=== PATIENT | female | born 1960 | race Caucasian/White ===

== ENCOUNTER 2018-07-11 11:44 | Observation (INO) ==
--- NOTE | 2018-07-11 12:16 | ED ---
HPI General Chief Complaint: Chest Pain Stated Complaint: chest pain/dizziness Time Seen by Provider: 07/11/18 11:58 Source: patient and family Mode of arrival: ambulatory Limitations: no limitations History of Present Illness HPI narrative: 57-year-old female with PMH of COPD, HTN presents to the ED for evaluation of 06/09 substernal chest pain, described as a heaviness, radiating to bilateral sides of the neck. Onset while at rest approximately 45 minutes before arrival. No alleviating or exacerbating factors reported. Patient reports associated dizziness, coronal headache, blurred vision, palpitations, shortness of breath, nausea. She denies any cardiac history. She takes a daily full-strength aspirin. No treatment attempted before arrival. She is a current smoker. MD complaint: chest pain Complete Quality Measures for STEMI Alert Patients STEMI Alert: No Onset (ago): minute(s) (45 minutes before arrival) Duration: constant Onset: during rest Pain location: substernal Severity: moderate Severity scale (1-10): 7 Quality: heaviness Pain radiation: neck Relieving factors: nothing Exacerbating factors: nothing Associated symptoms: nausea, dyspnea, palpitations and other (headache and dizziness) Treatments prior to arrival chest pain: none Related Data Allergies Allergy/AdvReac Type Severity Reaction Status Date / Time No Known Allergies Allergy Unverified 07/11/18 11:59 Review of Systems ROS: all other systems reviewed are negative [facility] Medical History Medical History Asthma (Acute) COPD (chronic obstructive pulmonary disease) (Acute) FHx: cholecystectomy (Acute) High cholesterol (Acute) Surgical History Surgical History H/O tubal ligation (Acute) Previous back surgery (Acute) Social History Social History Substance History: No History of Abuse Second Hand Smoke Exposure: Yes Smoking Status: Current every day smoker Tobacco Type: Cigarettes How Often Do You Have a Drink Containing Alcohol: Never Recent Out of Country Travel within the Last 8 Weeks: No Exam Narrative Exam Narrative: GENERAL: Petite, anxious appearing white female no acute distress. SKIN: Focused skin assessment warm/dry. HEAD: Atraumatic. Normocephalic. EYES: Pupils equal and round. No scleral icterus. No injection or drainage. ENT: No nasal bleeding or discharge. Mucous membranes pink and moist. NECK: Trachea midline. No JVD. CARDIOVASCULAR: Regular rate and rhythm. No murmur appreciated. RESPIRATORY: No accessory muscle use. End expiratory wheezing bilaterally. Breath sounds equal bilaterally. GASTROINTESTINAL: Abdomen soft, non-tender, nondistended. Hepatic and splenic margins not palpable. MUSCULOSKELETAL: No obvious deformities. No clubbing. No cyanosis. No edema. NEUROLOGICAL: Awake and alert. No obvious cranial nerve deficits. Motor grossly within normal limits. Normal speech. PSYCHIATRIC: Anxious. Course Initial Documented Vital Signs Temperature 98.1 F 07/11/18 11:50 Pulse Rate 84 07/11/18 11:50 Respiratory Rate 13 07/11/18 11:50 Blood Pressure 178/91 H 07/11/18 11:50 Pulse Oximetry 96 07/11/18 11:50 Last Documented Vital Signs Temperature 98.6 F 07/11/18 12:05 Pulse Rate 81 07/11/18 15:00 Respiratory Rate 20 07/11/18 15:00 Blood Pressure 137/77 07/11/18 15:00 Pulse Oximetry 97 07/11/18 15:00 Medical Decision Making MDM Narrative Medical decision making narrative: 57-year-old female with PMH of HTN, COPD presents the ED for evaluation of 45 minute history of chest heaviness radiating to the neck with associated headache and dizziness. BP 178/91 on presentation. Physical exam reveals an anxious appearing white female with tight breath sounds, otherwise unremarkable. Patient takes a daily aspirin. IV was established. Patient was administered p.o. Tylenol, sublingual nitroglycerin, IV dexamethasone and duo nebs 2. She complained of headache and was administered Benadryl, Compazine and morphine. She reports improvement of all her symptoms on recheck. She reports negative stress test 1 year ago. EKG: Rate 87, sinus rhythm. Normal intervals. Normal axis. No acute ST changes. Reviewed by Dr. Martinez. CT brain reveals evidence of old infarct but no acute findings. Cardiac enzymes negative 1, second troponin ordered. Plan to admit to the medicine service for COPD exacerbation, rule out ACS. Patient's agreeable to the plan. I spoke with the residents who agree to accept the patient under Dr. Cortez. Please see medicine notes for disposition. Differential Diagnosis Differential Diagnosis: COPD exacerbation versus anxiety versus chest pain versus ACS versus hypertensive urgency versus less likely dissecting aneurysm versus other Lab Data Result diagrams: 07/11/18 12:10 07/11/18 12:10 Lab Results 07/11/18 07/11/18 07/11/18 Range/Units 12:10 12:10 12:10 WBC 12.5 H (4.0-11.0) th/mm3 RBC 4.89 (4.00-5.30) mil/mm3 Hgb 14.2 (11.6-15.3) gm/dL Hct 43.2 (35.0-46.0) % MCV 88.4 (80.0-100.0) fL MCH 29.0 (27.0-34.0) pg MCHC 32.8 (32.0-36.0) % RDW 13.9 (11.6-17.2) % Plt Count 342 (150-450) th/mm3 MPV 8.8 (7.0-11.0) fL Neut % (Auto) 61.5 (16.0-70.0) % Lymph % (Auto) 28.8 (9.0-44.0) % [place] % (Auto) 4.7 (0.0-8.0) % Eos % (Auto) 4.2 H (0.0-4.0) % Baso % (Auto) 0.8 (0.0-2.0) % Neut # (Auto) 7.7 (1.8-7.7) th/mm3 Lymph # (Auto) 3.6 (1.0-4.8) th/mm3 [place] # (Auto) 0.6 (0.0-0.9) th/mm3 Eos # (Auto) 0.5 H (0.0-0.4) th/mm3 Baso # (Auto) 0.1 (0.0-0.2) th/mm3 WBC Differential . Differential Comment Auto diff final PT 9.9 (9.8-11.6) sec INR 1.0 Ratio APTT 30.8 H (24.3-30.1) sec Sodium 140 (136-145) meq/L Potassium 4.2 (3.5-5.1) meq/L Chloride 108 H (98-107) meq/L Carbon Dioxide 22.5 (21.0-32.0) meq/L Anion Gap 10 (5-15) meq/L BUN 14 (7-18) mg/dL Creatinine 1.04 H (0.50-1.00) mg/dL Estimated GFR 54 L (>89) mL/min Random Glucose 94 (74-106) mg/dL Calcium 9.1 (8.5-10.1) mg/dL Total Bilirubin 0.2 (0.2-1.0) mg/dL AST 26 (15-37) U/L ALT 34 (10-53) U/L Alkaline Phosphatase 130 H (45-117) U/L Troponin I Less than 0.02 L (0.02-0.05) ng/mL B-Natriuretic Peptide (0-100) pg/mL Total Protein 7.9 (6.4-8.2) g/dL Albumin 3.9 (3.4-5.0) g/dL Lipase 139 (73-393) U/L Urine Color (Yellw/Straw) Urine Clarity (Clear) Urine pH (5.0-8.5) Ur Specific [place] (1.002-1.035) Urine Protein (Neg-Trace) mg/dL Urine Glucose (UA) (Negative) mg/dL Urine Ketones (Negative) mg/dL Urine Occult Blood (Negative) Urine Nitrate (Negative) Urine Bilirubin (Negative) Urine Urobilinogen (Less than 2) mg/dL Ur Leukocyte Esterase (Negative) Urine RBC (0-3) /hpf Urine WBC (0-5) /hpf Ur Squamous Epith Cells (0-5) /hpf Urine Bacteria (None) /hpf Hyaline Casts (0-3) /lpf Urine Mucus (Occasional) /lpf Micro UA Comment Urine Culture Comments Serum Alcohol Less than 3 (0-5) mg/dL 07/11/18 07/11/18 Range/Units 12:10 15:45 WBC (4.0-11.0) th/mm3 RBC (4.00-5.30) mil/mm3 Hgb (11.6-15.3) gm/dL Hct (35.0-46.0) % MCV (80.0-100.0) fL MCH (27.0-34.0) pg MCHC (32.0-36.0) % RDW (11.6-17.2) % Plt Count (150-450) th/mm3 MPV (7.0-11.0) fL Neut % (Auto) (16.0-70.0) % Lymph % (Auto) (9.0-44.0) % [place] % (Auto) (0.0-8.0) % Eos % (Auto) (0.0-4.0) % Baso % (Auto) (0.0-2.0) % Neut # (Auto) (1.8-7.7) th/mm3 Lymph # (Auto) (1.0-4.8) th/mm3 [place] # (Auto) (0.0-0.9) th/mm3 Eos # (Auto) (0.0-0.4) th/mm3 Baso # (Auto) (0.0-0.2) th/mm3 WBC Differential Differential Comment PT (9.8-11.6) sec INR Ratio APTT (24.3-30.1) sec Sodium (136-145) meq/L Potassium (3.5-5.1) meq/L Chloride (98-107) meq/L Carbon Dioxide (21.0-32.0) meq/L Anion Gap (5-15) meq/L BUN (7-18) mg/dL Creatinine (0.50-1.00) mg/dL Estimated GFR (>89) mL/min Random Glucose (74-106) mg/dL Calcium (8.5-10.1) mg/dL Total Bilirubin (0.2-1.0) mg/dL AST (15-37) U/L ALT (10-53) U/L Alkaline Phosphatase (45-117) U/L Troponin I (0.02-0.05) ng/mL B-Natriuretic Peptide 10 (0-100) pg/mL Total Protein (6.4-8.2) g/dL Albumin (3.4-5.0) g/dL Lipase (73-393) U/L Urine Color Yellow (Yellw/Straw) Urine Clarity Hazy H (Clear) Urine pH 5.0 (5.0-8.5) Ur Specific [place] 1.011 (1.002-1.035) Urine Protein Negative (Neg-Trace) mg/dL Urine Glucose (UA) Negative (Negative) mg/dL Urine Ketones Negative (Negative) mg/dL Urine Occult Blood Negative (Negative) Urine Nitrate Negative (Negative) Urine Bilirubin Negative (Negative) Urine Urobilinogen Less than 2 (Less than 2) mg/dL Ur Leukocyte Esterase Moderate H (Negative) Urine RBC 1 (0-3) /hpf Urine WBC 14 H (0-5) /hpf Ur Squamous Epith Cells 9 (0-5) /hpf Urine Bacteria Rare H (None) /hpf Hyaline Casts 1 (0-3) /lpf Urine Mucus Few H (Occasional) /lpf Micro UA Comment Culture indicated Urine Culture Comments Culture indicated Serum Alcohol (0-5) mg/dL Imaging Data Radiologist's impression: Chest X-Ray 07/11/18 11:59 CONCLUSION: No acute cardiopulmonary disease. Head CT 07/11/18 12:07 CONCLUSION: 1. 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 2. Small old infarct in the posterior right cerebellar hemisphere. 3. No focal or acute intracranial hemorrhage. . Discharge Plan Discharge Disposition Patient Disposition: 30 Still Patient Physicians Team ED Provider: Kamar Martinez ED Midlevel Provider: Sanjuana Lawrence Primary Care Provider: Primary Care Kelsi Bryant Discharge Instructions Patient Printed Instructions: Chest Pain (ED) Status ED Status: With Doctor
--- NOTE | 2018-07-11 12:29 | XR ---
EXAM DATE: 07/11/2018 12:26 PM EDT AGE/SEX: 57 years / Female INDICATIONS: Shortness of breath. CLINICAL DATA: This is the patient's initial encounter. Patient reports that signs and symptoms have been present for 3 days and indicates a pain score of 4/10. MEDICAL/SURGICAL HISTORY: Hypertension. Chronic obstructive pulmonary disease. None. COMPARISON: No prior exams available for comparison. FINDINGS: A single AP view of the chest demonstrates the lungs to be symmetrically aerated without evidence of mass, infiltrate or effusion. The cardiomediastinal contours are unremarkable. Osseous structures a re intact. CONCLUSION: No acute cardiopulmonary disease. Electronically signed by: Geovanni Sexton MD 07/11/2018 12:27 PM EDT
[2018-07-11 13:37] LABS: Baso # (Auto) 0.1 th/mm3 (0.0-0.2); Baso % (Auto) 0.8 % (0.0-2.0); Eos # (Auto) 0.5 th/mm3 (0.0-0.4); Eos % (Auto) 4.2 % (0.0-4.0); Hematocrit 43.2 % (35.0-46.0); Hemoglobin 14.2 gm/dL (11.6-15.3); Lymph # (Auto) 3.6 th/mm3 (1.0-4.8); Lymph % (Auto) 28.8 % (9.0-44.0); Mean Corpuscular HGB Conc 32.8 % (32.0-36.0); Mean Corpuscular Volume 88.4 fL (80.0-100.0); Mean Platelet Volume 8.8 fL (7.0-11.0); Mono # (Auto) 0.6 th/mm3 (0.0-0.9); Mono % (Auto) 4.7 % (0.0-8.0); Neut # (Auto) 7.7 th/mm3 (1.8-7.7); Neut % (Auto) 61.5 % (16.0-70.0); Platelet Count 342 th/mm3 (150-450); Red Blood Count 4.89 mil/mm3 (4.00-5.30); Red Cell Distribution Width 13.9 % (11.6-17.2); White Blood Count 12.5 th/mm3 (4.0-11.0)
[2018-07-11] MEDS ORDERED: Acetaminophen 325 MG Tablet PO ONE (13:47)
[2018-07-11 13:49] LABS: Activated Partial Thrombo Time 30.8 sec (24.3-30.1); Prothrombin Time 9.9 sec (9.8-11.6)
[2018-07-11 13:50] LABS: Albumin 3.9 g/dL (3.4-5.0); Anion Gap 10 meq/L (5-15); Aspartate Aminotransferase 26 U/L (15-37); Blood Urea Nitrogen 14 mg/dL (7-18); Calcium 9.1 mg/dL (8.5-10.1); Carbon Dioxide 22.5 meq/L (21.0-32.0); Chloride 108 meq/L (98-107); Glomerular Filtration Rate 54 mL/min (>89); Glucose,Random 94 mg/dL (74-106); Lipase 139 U/L (73-393); Potassium 4.2 meq/L (3.5-5.1); Sodium 140 meq/L (136-145)
[2018-07-11 13:51] LABS: Alanine Aminotransferase 34 U/L (10-53)
[2018-07-11 13:55] LABS: Alkaline Phosphatase 130 U/L (45-117); Total Protein 7.9 g/dL (6.4-8.2)
[2018-07-11] MEDS ORDERED: Morphine Inj 4 MG/ML Vial IV.PUSH ONE (14:24)
--- NOTE | 2018-07-11 15:13 | CT ---
EXAM DATE: 07/11/2018 2:59 PM EDT AGE/SEX: 57 years / Female INDICATIONS: Dizziness today. CLINICAL DATA: This is the patient's initial encounter. Patient reports that signs and symptoms have been present for 1 day and indicates a pain score of 0/10. MEDICAL/SURGICAL HISTORY: Stroke. None. RADIATION DOSE: 56.35 CTDI (mGy) COMPARISON: No prior exams available for comparison. TECHNIQUE: CT of the head without contrast. Using automated exposure control and adjustment of the mA and/or kV according to patient size, radiation dose was kept as low as reasonably achievable to ob tain optimal diagnostic quality images. DICOM format image data is available electronically for revi ew and comparison. FINDINGS: Cerebrum: The ventricles are normal for age. No evidence of midline shift, mass lesion, hemorrhage or acute infarction. There is evidence of old bilateral occipital infarcts, right greater than left. No extraaxial fluid collections are seen. Posterior Fossa: There is a small old infarct in the posterior right cerebellar hemisphere.. The 4t h ventricle is midline. The cerebellopontine angle is unremarkable. Extracranial: The visualized portion of the orbits is intact. Skull: The calvaria is intact. No evidence of skull fracture. CONCLUSION: 1. 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 2. Small old infarct in the posterior right cerebellar hemisphere. 3. No focal or acute intracranial hemorrhage. . Electronically signed by: Markus Ignacio MD 07/11/2018 3:12 PM EDT
[2018-07-11 16:10] LABS: Bacteria,Urine Rare /hpf; Bilirubin,Urine Negative (Negative); Clarity,Urine Hazy (Clear); Color,Urine Yellow (Yellw/Straw); Glucose,Urine (UA) Negative (Negative); Hyaline Casts,Urine 1 /lpf (0-3); Leukocyte Esterase,Urine Moderate (Negative); Mucus,Urine Few /lpf (Occasional); Nitrite,Urine Negative (Negative); Specific Gravity,Urine 1.011 (1.002-1.035); Squamous Epithelial Cell,Urine 9 /hpf (0-5)
[2018-07-11 16:11] LABS: Amphetamine Screen,Urine Neg (Neg); Barbiturate Screen,Urine Neg (Neg); Cannabinoid Screen,Urine Neg (Neg); Cocaine Screen,Urine Neg (Neg)
[2018-07-11 16:32] LABS: Opiate Screen,Urine Neg (Neg)
--- NOTE | 2018-07-11 17:25 | P.HPFP ---
History of Present Illness Primary Care Physician: No Primary Care Physician <Annia Cortez - 07/12/18 11:43> No Primary Care Physician Recently moved from [place], no PCP here yet <Maite Bertrand - 07/11/18 17:25> History of Present Illness: 57-year-old female, history of severe COPD, headaches, multiple strokes, kidney disease, presents with COPD exacerbation, headache, and epigastric pain. All of her symptoms started at 11:45AM this morning in the store. She got dizzy and nauseas, and drove her to the ED. During time of exam, pt is s/p morphine dosing and is very letheragic and having difficulty answering questions. The states she stopped the cart in the middle of the store and said she was dizzy and nauseas and wanted to go sit in the car. In the car she was slumped against the door and looked really sick. She was complaining of headache over the day; it started in the morning when she woke up and progressively got worse and worse over the day. She did not appear to have any difficulty breathing. She was holding her chest and saying she had "sharp pains in the middle" of her chest. She seemed to be somewhat altered/confused, however this does happen to her occasionally since her strokes. After arriving to the ED, her CP was relieved with nitro, nausea was relieved, but her headache remained. <Maite Bertrand - 07/11/18 21:33> - Diagnosis (1) COPD (chronic obstructive pulmonary disease) (2) Headache (3) Diarrhea (4) Epigastric pain (5) Anxiety (6) CVA, old, cognitive deficits (7) CKD (chronic kidney disease) (8) UTI (urinary tract infection) (9) Nutrition, metabolism, and development symptoms <Annia Cortez - 07/12/18 11:43> (1) COPD (chronic obstructive pulmonary disease) (2) Headache (3) Diarrhea (4) Epigastric pain (5) Anxiety (6) CVA, old, cognitive deficits (7) CKD (chronic kidney disease) (8) UTI (urinary tract infection) (9) Nutrition, metabolism, and development symptoms <Maite Bertrand - 07/11/18 21:30> Review of Systems Constitutional: Denies body ache(s), Denies chills, Denies fever(s), Denies weight loss <Maite Bertrand 07/11/18 17:25> Eyes: Reports blurry vision (yes today) <Maite Bertrand 07/11/18 17:25> Cardiovascular: Reports shortness of breath (some SOB a few days ago), Denies fainting, Denies leg swelling <Maite Bertrand 07/11/18 17:25> Respiratory: Reports cough <Maite Bertrand 07/11/18 17:25> Gastrointestinal: Reports change in bowel habits (diarrhea recently, x 1 week), Denies abdominal pain, Denies black, tarry stools <Maite Bertrand 07/11/18 17:25> Musculoskeletal: Reports abnormal walking <Maite Bertrand 07/11/18 17:25> PMFSH - History History Provided By: Patient, Family Member <Maite Bertrand 07/11/18 17:25> - Medical History Medical History: Medical History (Last Updated 07/11/18 @ 17:28 by Maite Bertrand MD, R2) Asthma COPD (chronic obstructive pulmonary disease) CVA (cerebral vascular accident) FHx: cholecystectomy High cholesterol <Annia Cortez 07/12/18 11:43> Medical History (Last Updated 07/11/18 @ 17:28 by Maite Bertrand MD, R2) Asthma COPD (chronic obstructive pulmonary disease) CVA (cerebral vascular accident) FHx: cholecystectomy High cholesterol <Maite Bertrand 07/11/18 17:28> - Surgical History Surgical History: Surgical History (Last Reviewed 07/11/18 @ 17:24 by Maite Bertrand MD, R2) H/O tubal ligation Previous back surgery <Annia Cortez - 07/12/18 11:43> Surgical History (Last Reviewed 07/11/18 @ 17:24 by Maite Bertrand MD, R2) H/O tubal ligation Previous back surgery <Maite Bertrand 07/11/18 17:25> - Tobacco History Second Hand Smoke Exposure: Yes <Maite Bertrand 07/11/18 17:25> Tobacco Use In Past 30 Days: Yes <Maite Bertrand - 07/11/18 17:25> Smoking Status: Current every day smoker (1 ppd x 40 years) <Maite Bertrand - 07/11/18 17:25> Tobacco Type: Cigarettes <Maite Bertrand 07/11/18 17:25> - Alcohol History How Often Do You Have a Drink Containing Alcohol: Never <Maite Bertrand 10/18 17:25> - Substance Use History Substance History: No History of Abuse <JerzyJoseMaite 07/11/18 17:25> - Travel History History of Recent Travel: No <JerzyMaite 07/11/18 17:25> Recent Travel in the [facility] Within the Last 8 Weeks: No <JerzyMaite 17:25> Recent Travel Out of the Country Within the Last 8 Weeks: No <JerzyMaite 07/11/18 17:25> - Immunization History Tetanus Immunization: Unsure <JerzyJoseMaite 07/11/18 17:25> Hx Influenza Vaccine This Season: Yes <JerzyMaite 07/11/18 17:25> Medications and Allergies Allergies Allergy/AdvReac Type Severity Reaction Status Date / Time ciprofloxacin Allergy Intermediate Rash Verified 07/11/18 21:35 lisinopril Allergy Mild Cough Verified 07/11/18 21:34 metformin AdvReac Mild Gastrointestinal Verified 07/11/18 21:34 Upset <Annia Cortez - 07/12/18 11:43> Active Medications: Active Medications Albuterol (Albuterol Neb (Prn)) 2.5 mg NEB Q2HR NEB PRN PRN Reason: SHORTNESS OF BREATH Albuterol (Duoneb Neb (Richard)) 1 ampul NEB Q4HR NEB [facility] Last Admin: 07/12/18 08:30 Dose: 1 ampul Aspirin (Aspirin Chew) 81 mg PO DAILY [facility] Last Admin: 07/12/18 08:35 Dose: 81 mg Bupropion HCl (Wellbutrin) 100 mg PO DAILY [facility] Last Admin: 07/12/18 09:53 Dose: 100 mg Clopidogrel Bisulfate (Plavix) 75 mg PO DAILY [facility] Last Admin: 07/12/18 08:34 Dose: 75 mg Azithromycin 500 mg/ Sodium (Chloride) 250 mls @ 250 mls/hr IV.SIG Q24H [facility] Last Infusion: 07/12/18 04:00 Dose: Infused Acetaminophen (Ofirmev Inj) 1,000 mg in 100 mls @ 400 mls/hr IV.SIG Q6H PRN PRN Reason: PAIN SCALE 1 TO 10 Last Admin: 07/12/18 08:37 Dose: 400 mls/hr Ketorolac Tromethamine (Toradol Inj) 30 mg IV.PUSH PRN PRN PRN Reason: MIGRAINE HEADACHE Stop: 07/16/18 21:23 Last Admin: 07/11/18 22:30 Dose: 30 mg Ketorolac Tromethamine (Toradol Inj) 30 mg IV.PUSH Q6H RICHARD Stop: 07/17/18 08:59 Last Admin: 07/12/18 08:36 Dose: Not Given Memantine (Namenda) 5 mg PO TID [facility] Last Admin: 07/12/18 09:53 Dose: 5 mg Pantoprazole Sodium (Protonix Inj) 40 mg IV.PUSH Q24H [facility] Last Admin: 07/11/18 19:29 Dose: 40 mg Paroxetine HCl (Paxil) 40 mg PO DAILY [facility] Last Admin: 07/12/18 08:35 Dose: 40 mg Sodium Chloride (Ns Flush) 2 ml IV.FLUSH BID [facility] Last Admin: 07/11/18 21:26 Dose: 2 ml Sodium Chloride (Ns Flush) 2 ml IV.FLUSH PRN PRN PRN Reason: FLUSH AFTER USING IV ACCESS <Annia Cortez - 07/12/18 11:43> Active Medications Sodium Chloride (Ns Flush) 2 ml IV.FLUSH UNSCH PRN PRN Reason: FLUSH AFTER USING IV ACCESS Last Admin: 07/11/18 14:55 Dose: 2 ml <Maite Bertrand - 07/11/18 17:25> Exam Vital signs: Vital Signs 07/11/18 11:50 07/11/18 11:59 07/11/18 12:00 Temperature 98.1 F Pulse Rate 84 92 H Pulse Rate [Right Radial] Respiratory Rate 13 18 Blood Pressure 178/91 H 121/79 Blood Pressure [Left Arm] Blood Pressure [Right Arm] Pulse Oximetry 96 98 98 07/11/18 12:05 07/11/18 12:22 07/11/18 12:25 Temperature 98.6 F Pulse Rate 85 85 92 H Pulse Rate [Right Radial] 85 92 H Respiratory Rate 18 15 18 Blood Pressure 135/87 139/60 Blood Pressure [Left Arm] 139/60 Blood Pressure [Right Arm] 135/87 139/60 Pulse Oximetry 98 97 95 07/11/18 13:00 07/11/18 14:00 07/11/18 15:00 Temperature Pulse Rate 92 H 88 81 Pulse Rate [Right Radial] Respiratory Rate 18 18 20 Blood Pressure 121/79 171/88 H 137/77 Blood Pressure [Left Arm] Blood Pressure [Right Arm] Pulse Oximetry 95 98 97 07/11/18 18:00 07/11/18 19:30 07/11/18 20:32 Temperature 98.1 F Pulse Rate 78 80 Pulse Rate [Right Radial] Respiratory Rate 13 17 Blood Pressure 113/62 104/58 L Blood Pressure [Left Arm] Blood Pressure [Right Arm] Pulse Oximetry 98 96 94 L 07/11/18 21:29 07/12/18 00:13 07/12/18 00:24 Temperature 98.3 F Pulse Rate 85 78 Pulse Rate [Right Radial] Respiratory Rate 18 16 16 Blood Pressure 102/57 L Blood Pressure [Left Arm] Blood Pressure [Right Arm] Pulse Oximetry 95 95 07/12/18 00:27 07/12/18 03:18 07/12/18 04:14 Temperature 98.0 F Pulse Rate 81 84 84 Pulse Rate [Right Radial] Respiratory Rate 16 16 Blood Pressure 107/55 L Blood Pressure [Left Arm] Blood Pressure [Right Arm] Pulse Oximetry 96 07/12/18 04:16 07/12/18 08:00 07/12/18 08:34 Temperature 97.9 F Pulse Rate 82 94 H 96 H Pulse Rate [Right Radial] Respiratory Rate 16 16 19 Blood Pressure 100/54 L Blood Pressure [Left Arm] Blood Pressure [Right Arm] Pulse Oximetry 94 L 07/12/18 09:00 07/12/18 11:35 Temperature 98.3 F Pulse Rate 101 H 108 H Pulse Rate [Right Radial] Respiratory Rate 16 Blood Pressure 87/49 L Blood Pressure [Left Arm] Blood Pressure [Right Arm] Pulse Oximetry 92 L Intake & Output 07/11/18 07/12/18 07/12/18 18:59 06:59 18:59 Intake Total 250 / 250 Balance 250 / 250 Weight 65.7 kg Intake: IV 250 / 250 Azithromycin Inj 500 MG In NS 250 / 250 Inj 250 ML @ 250 mls/hr IV.SIG Q24H [facility] Rx#:[id number] Other: # Voids 1 <Annia Cortez - 07/12/18 11:43> Vital Signs 07/11/18 11:50 07/11/18 11:59 07/11/18 12:00 Temperature 98.1 F Pulse Rate 84 92 H Pulse Rate [Right Radial] Respiratory Rate 13 18 Blood Pressure 178/91 H 121/79 Blood Pressure [Left Arm] Blood Pressure [Right Arm] Pulse Oximetry 96 98 98 07/11/18 12:05 07/11/18 12:22 07/11/18 12:25 Temperature 98.6 F Pulse Rate 85 85 92 H Pulse Rate [Right Radial] 85 92 H Respiratory Rate 18 15 18 Blood Pressure 135/87 139/60 Blood Pressure [Left Arm] 139/60 Blood Pressure [Right Arm] 135/87 139/60 Pulse Oximetry 98 97 95 07/11/18 13:00 07/11/18 14:00 07/11/18 15:00 Temperature Pulse Rate 92 H 88 81 Pulse Rate [Right Radial] Respiratory Rate 18 18 20 Blood Pressure 121/79 171/88 H 137/77 Blood Pressure [Left Arm] Blood Pressure [Right Arm] Pulse Oximetry 95 98 97 Intake & Output 07/10/18 07/11/18 07/11/18 18:59 06:59 18:59 Weight 65.7 kg <Maite Bertrand - 07/11/18 17:25> - Constitutional no acute distress <Maite Bertrand - 07/11/18 21:33> - Routine Chest/Breast/Axilla Exam Chest wall: Present: tenderness (Tenderness over his substernal epigastric area) <Maite Bertrand - 07/11/18 21:33> - Routine Respiratory Exam Present: prolonged expiratory phase, wheezes, crackles (Profound wheezes and crackles auscultated in all lung bautista throughout). Absent: accessory muscle use, decreased breath sounds <Maite Bertrand - 07/11/18 21:33> - Routine Cardiovascular Exam Present: RRR, S1, S2. Absent: murmur <Maite Bertrand - 07/11/18 21:33> - Routine Abdominal Exam Present: soft, normoactive bowel sounds. Absent: tenderness <Maite Bertrand - 07/11/18 21:33> - Routine Extremities Exam Absent: cyanosis, clubbing, edema <Maite Bertrand - 07/11/18 21:33> Results - Labs Result diagrams: 07/11/18 19:20 07/11/18 19:20 <Annia Cortez - 07/12/18 11:43> Abnormal lab results 07/11/18 07/11/18 07/11/18 Range/Units 12:10 12:10 12:10 WBC 12.5 H (4.0-11.0) th/mm3 Neut % (Auto) (16.0-70.0) % Eos % (Auto) 4.2 H (0.0-4.0) % Neut # (Auto) (1.8-7.7) th/mm3 Eos # (Auto) 0.5 H (0.0-0.4) th/mm3 APTT 30.8 H (24.3-30.1) sec O2 Saturation (90-100) % ABG pCO2 (38-42) mmHg ABG Base Excess (-2-2) mmol/L Chloride 108 H (98-107) meq/L Creatinine 1.04 H (0.50-1.00) mg/dL Estimated GFR 54 L (>89) mL/min Random Glucose (74-106) mg/dL AST (15-37) U/L Alkaline Phosphatase 130 H (45-117) U/L Troponin I Less than 0.02 L (0.02-0.05) ng/mL Urine Clarity (Clear) Ur Leukocyte Esterase (Negative) Urine WBC (0-5) /hpf Urine Bacteria (None) /hpf Urine Mucus (Occasional) /lpf 07/11/18 07/11/18 07/11/18 Range/Units 15:45 18:10 19:20 WBC (4.0-11.0) th/mm3 Neut % (Auto) 89.4 H (16.0-70.0) % Eos % (Auto) (0.0-4.0) % Neut # (Auto) 9.4 H (1.8-7.7) th/mm3 Eos # (Auto) (0.0-0.4) th/mm3 APTT (24.3-30.1) sec O2 Saturation 89 L* (90-100) % ABG pCO2 36 L (38-42) mmHg ABG Base Excess -2.2 L (-2-2) mmol/L Chloride (98-107) meq/L Creatinine (0.50-1.00) mg/dL Estimated GFR (>89) mL/min Random Glucose (74-106) mg/dL AST (15-37) U/L Alkaline Phosphatase (45-117) U/L Troponin I (0.02-0.05) ng/mL Urine Clarity Hazy H (Clear) Ur Leukocyte Esterase Moderate H (Negative) Urine WBC 14 H (0-5) /hpf Urine Bacteria Rare H (None) /hpf Urine Mucus Few H (Occasional) /lpf 07/11/18 07/11/18 07/12/18 Range/Units 19:20 19:20 00:30 WBC (4.0-11.0) th/mm3 Neut % (Auto) (16.0-70.0) % Eos % (Auto) (0.0-4.0) % Neut # (Auto) (1.8-7.7) th/mm3 Eos # (Auto) (0.0-0.4) th/mm3 APTT (24.3-30.1) sec O2 Saturation (90-100) % ABG pCO2 (38-42) mmHg ABG Base Excess (-2-2) mmol/L Chloride 109 H (98-107) meq/L Creatinine 1.08 H (0.50-1.00) mg/dL Estimated GFR 52 L (>89) mL/min Random Glucose 124 H (74-106) mg/dL AST 51 H (15-37) U/L Alkaline Phosphatase 147 H (45-117) U/L Troponin I Less than 0.02 L Less than 0.02 L (0.02-0.05) ng/mL Urine Clarity (Clear) Ur Leukocyte Esterase (Negative) Urine WBC (0-5) /hpf Urine Bacteria (None) /hpf Urine Mucus (Occasional) /lpf Short CBC 07/11/18 07/11/18 Range/Units 12:10 19:20 WBC 12.5 H 10.5 (4.0-11.0) th/mm3 Hgb 14.2 13.2 (11.6-15.3) gm/dL Hct 43.2 38.7 (35.0-46.0) % Plt Count 342 310 (150-450) th/mm3 BMP 07/11/18 07/11/18 12:10 19:20 Sodium 140 140 Potassium 4.2 4.0 Chloride 108 H 109 H Carbon Dioxide 22.5 23.7 BUN 14 14 Creatinine 1.04 H 1.08 H Calcium 9.1 8.6 Cardiac Enzymes 07/11/18 07/11/18 07/12/18 Range/Units 12:10 19:20 00:30 Troponin I Less than 0.02 L Less than 0.02 L Less than 0.02 L (0.02-0.05) ng/mL Liver Function 07/11/18 07/11/18 Range/Units 12:10 19:20 Total Bilirubin 0.2 0.2 (0.2-1.0) mg/dL AST 26 51 H (15-37) U/L ALT 34 47 (10-53) U/L Alkaline Phosphatase 130 H 147 H (45-117) U/L Albumin 3.9 3.4 (3.4-5.0) g/dL Urine 07/11/18 Range/Units 15:45 Urine Color Yellow (Yellw/Straw) Urine Clarity Hazy H (Clear) Urine pH 5.0 (5.0-8.5) Ur Specific Hamel 1.011 (1.002-1.035) Urine Protein Negative (Neg-Trace) mg/dL Urine Glucose (UA) Negative (Negative) mg/dL <Annia Cortez - 07/12/18 11:43> Abnormal lab results 07/11/18 07/11/18 07/11/18 Range/Units 12:10 12:10 12:10 WBC 12.5 H (4.0-11.0) th/mm3 Eos % (Auto) 4.2 H (0.0-4.0) % Eos # (Auto) 0.5 H (0.0-0.4) th/mm3 APTT 30.8 H (24.3-30.1) sec Chloride 108 H (98-107) meq/L Creatinine 1.04 H (0.50-1.00) mg/dL Estimated GFR 54 L (>89) mL/min Alkaline Phosphatase 130 H (45-117) U/L Troponin I Less than 0.02 L (0.02-0.05) ng/mL Urine Clarity (Clear) Ur Leukocyte Esterase (Negative) Urine WBC (0-5) /hpf Urine Bacteria (None) /hpf Urine Mucus (Occasional) /lpf 07/11/18 Range/Units 15:45 WBC (4.0-11.0) th/mm3 Eos % (Auto) (0.0-4.0) % Eos # (Auto) (0.0-0.4) th/mm3 APTT (24.3-30.1) sec Chloride (98-107) meq/L Creatinine (0.50-1.00) mg/dL Estimated GFR (>89) mL/min Alkaline Phosphatase (45-117) U/L Troponin I (0.02-0.05) ng/mL Urine Clarity Hazy H (Clear) Ur Leukocyte Esterase Moderate H (Negative) Urine WBC 14 H (0-5) /hpf Urine Bacteria Rare H (None) /hpf Urine Mucus Few H (Occasional) /lpf Short CBC 07/11/18 Range/Units 12:10 WBC 12.5 H (4.0-11.0) th/mm3 Hgb 14.2 (11.6-15.3) gm/dL Hct 43.2 (35.0-46.0) % Plt Count 342 (150-450) th/mm3 BMP 07/11/18 12:10 Sodium 140 Potassium 4.2 Chloride 108 H Carbon Dioxide 22.5 BUN 14 Creatinine 1.04 H Calcium 9.1 Cardiac Enzymes 07/11/18 Range/Units 12:10 Troponin I Less than 0.02 L (0.02-0.05) ng/mL Liver Function 07/11/18 Range/Units 12:10 Total Bilirubin 0.2 (0.2-1.0) mg/dL AST 26 (15-37) U/L ALT 34 (10-53) U/L Alkaline Phosphatase 130 H (45-117) U/L Albumin 3.9 (3.4-5.0) g/dL Urine 07/11/18 Range/Units 15:45 Urine Color Yellow (Yellw/Straw) Urine Clarity Hazy H (Clear) Urine pH 5.0 (5.0-8.5) Ur Specific Hamel 1.011 (1.002-1.035) Urine Protein Negative (Neg-Trace) mg/dL Urine Glucose (UA) Negative (Negative) mg/dL <Maite Bertrand - 07/11/18 17:25> - Imaging Impressions Carotid Doppler Study 07/11/18 00:00 CONCLUSION: 1. Right Internal Carotid Artery: No significant plaque or narrowing. 2. Left Internal Carotid Artery: No significant plaque or narrowing. Head MRI 07/11/18 00:00 CONCLUSION: 1. 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 2. No acute abnormality. Head MRA 07/11/18 00:00 CONCLUSION: Within normal limits. No acute occlusive disease. Chest X-Ray 07/11/18 11:59 CONCLUSION: No acute cardiopulmonary disease. Head CT 07/11/18 12:07 CONCLUSION: 1. 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 2. Small old infarct in the posterior right cerebellar hemisphere. 3. No focal or acute intracranial hemorrhage. . <Annia Cortez - 07/12/18 11:43> Impressions Chest X-Ray 07/11/18 11:59 CONCLUSION: No acute cardiopulmonary disease. Head CT 07/11/18 12:07 CONCLUSION: 1. 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 2. Small old infarct in the posterior right cerebellar hemisphere. 3. No focal or acute intracranial hemorrhage. . <Maite Bertrand - 07/11/18 17:25> Caprini VTE Risk Assessment Caprini VTE Risk Assessment: No/Low Risk (score <= 1) <Maite Bertrand - 07/11 21:33> Caprini Risk Assessment Model: Point Value = 1 Point Value = 2 Point Value = 3 Point Value = 5 Age 41-60 Minor surgery BMI > 25 kg/m2 Swollen legs Varicose veins or History of unexplained or recurrent spontaneous Oral contraceptives or hormone replacement Sepsis (< 1 month) Serious lung disease, including pneumonia (< 1 month) Abnormal pulmonary function Acute myocardial infarction Congestive heart failure (< 1 month) History of inflammatory bowel disease Medical patient at bed rest Age 61-74 Arthroscopic surgery Major open surgery (> 45 min) Laparoscopic surgery (> 45 min) Malignancy Confined to bed (> 72 hours) Immobilizing plaster cast Central venous access Age >= 75 History of VTE Family history of VTE Factor V Leiden Prothrombin [id number] Lupus anticoagulant Anticardiolipin antibodies Elevated serum homocysteine Heparin-induced thrombocytopenia Other congenital or acquired thrombophilia Stroke (< 1 month) Elective arthroplasty Hip, pelvis, or leg fracture Acute spinal cord injury (< 1 month) <Annia Cortez - 07/12/18 11:43> Point Value = 1 Point Value = 2 Point Value = 3 Point Value = 5 Age 41-60 Minor surgery BMI > 25 kg/m2 Swollen legs Varicose veins or History of unexplained or recurrent spontaneous Oral contraceptives or hormone replacement Sepsis (< 1 month) Serious lung disease, including pneumonia (< 1 month) Abnormal pulmonary function Acute myocardial infarction Congestive heart failure (< 1 month) History of inflammatory bowel disease Medical patient at bed rest Age 61-74 Arthroscopic surgery Major open surgery (> 45 min) Laparoscopic surgery (> 45 min) Malignancy Confined to bed (> 72 hours) Immobilizing plaster cast Central venous access Age >= 75 History of VTE Family history of VTE Factor V Leiden Prothrombin [id number] Lupus anticoagulant Anticardiolipin antibodies Elevated serum homocysteine Heparin-induced thrombocytopenia Other congenital or acquired thrombophilia Stroke (< 1 month) Elective arthroplasty Hip, pelvis, or leg fracture Acute spinal cord injury (< 1 month) <Maite Bertrand - 07/11/18 17:25> Prophylaxis Regimen: Total Risk Factor Score Risk Level Prophylaxis Regimen 0-1 Low Early ambulation 2 Moderate Order ONE of the following: *Sequential Compression Device (SCD) *Heparin 5000 units SQ BID 3-4 Higher Order ONE of the following medications: *Heparin 5000 units SQ TID *Enoxaparin/Lovenox 40 mg SQ daily (WT < 150 kg, CrCl > 30 mL/min) *Enoxaparin/Lovenox 30 mg SQ daily (WT < 150 kg, CrCl > 10-29 mL/min) *Enoxaparin/Lovenox 30 mg SQ BID (WT < 150 kg, CrCl > 30 mL/min) AND/OR *Sequential Compression Device (SCD) 5 or more Highest Order ONE of the following medications: *Heparin 5000 units SQ TID (Preferred with Epidurals) *Enoxaparin/Lovenox 40 mg SQ daily (WT < 150 kg, CrCl > 30 mL/min) *Enoxaparin/Lovenox 30 mg SQ daily (WT < 150 kg, CrCl > 10-29 mL/min) *Enoxaparin/Lovenox 30 mg SQ BID (WT < 150 kg, CrCl > 30 mL/min) AND *Sequential Compression Device (SCD) <Annia Cortez - 07/12/18 11:43> Total Risk Factor Score Risk Level Prophylaxis Regimen 0-1 Low Early ambulation 2 Moderate Order ONE of the following: *Sequential Compression Device (SCD) *Heparin 5000 units SQ BID 3-4 Higher Order ONE of the following medications: *Heparin 5000 units SQ TID *Enoxaparin/Lovenox 40 mg SQ daily (WT < 150 kg, CrCl > 30 mL/min) *Enoxaparin/Lovenox 30 mg SQ daily (WT < 150 kg, CrCl > 10-29 mL/min) *Enoxaparin/Lovenox 30 mg SQ BID (WT < 150 kg, CrCl > 30 mL/min) AND/OR *Sequential Compression Device (SCD) 5 or more Highest Order ONE of the following medications: *Heparin 5000 units SQ TID (Preferred with Epidurals) *Enoxaparin/Lovenox 40 mg SQ daily (WT < 150 kg, CrCl > 30 mL/min) *Enoxaparin/Lovenox 30 mg SQ daily (WT < 150 kg, CrCl > 10-29 mL/min) *Enoxaparin/Lovenox 30 mg SQ BID (WT < 150 kg, CrCl > 30 mL/min) AND *Sequential Compression Device (SCD) <Maite Bertrand - 07/11/18 17:25> Assessment and Plan - Assessment (1) COPD (chronic obstructive pulmonary disease) Code(s): J44.9 - Chronic obstructive pulmonary disease, unspecified Status: Acute (2) Headache Code(s): R51 - Headache Status: Acute (3) Diarrhea Code(s): R19.7 - Diarrhea, unspecified Status: Acute (4) Epigastric pain Code(s): R10.13 - Epigastric pain Status: Acute (5) Anxiety Code(s): F41.9 - Anxiety disorder, unspecified Status: Acute (6) CVA, old, cognitive deficits Code(s): I69.319 - Unspecified symptoms and signs involving cognitive functions following cerebral infarction Status: Acute (7) CKD (chronic kidney disease) Code(s): N18.9 - Chronic kidney disease, unspecified Status: Acute (8) UTI (urinary tract infection) Code(s): N39.0 - Urinary tract infection, site not specified Status: Acute (9) Nutrition, metabolism, and development symptoms Code(s): R63.8 - Other symptoms and signs concerning food and fluid intake Status: Acute <Annia Cortez Josh - 07/12/18 11:43> (1) COPD (chronic obstructive pulmonary disease) Code(s): J44.9 - Chronic obstructive pulmonary disease, unspecified Status: Acute Plan: Advanced COPD, history of multiple hospitalizations, poor management, wheezing on physical exam No signs of sepsis, vital signs stable O2 as needed to maintain O2 sats over 92% Monitor pulse ox Vital signs every 4 hours Follow-up with COPD educator Follow-up respiratory panel Follow-up blood cultures, sputum cultures Duo nebs every 4 hours scheduled Azithromycin 500 mg IV every 24 hours Status post DEXA 80 mg IV push in ED Added Protonix 40 mg IV push for steroid use (2) Headache Code(s): R51 - Headache Status: Acute Plan: May be due to deoxygenation versus panic disorder versus stroke/cranial effects Patient has history of headaches, with nausea, and has used meclizine antihistamine in the past -Will restart meclizine 25 mg daily when patient tolerates p.o. -We will try high-dose aspirin when patient tolerates p.o. -Added IV Toradol as needed for now -Ideally we avoid opiate analgesics Follow-up workup for above etiologies ABG: PH 7.40, PCO2: 36, O2 saturation: 89 (3) Diarrhea Code(s): R19.7 - Diarrhea, unspecified Status: Acute Plan: May be related to pneumonia versus GI viral illness Follow-up progression with antibiotic treatment (4) Epigastric pain Code(s): R10.13 - Epigastric pain Status: Acute Plan: Epigastric pain may be due to cardiac origin versus esophagitis versus PE Follow-up ACS workup: Troponin negative 2 EKG negative 1 Hemoglobin stable, 14 Add Protonix 40 mg IV daily f/u FOBT VSS, will consider D-Dimer if tachy/tachypneic/desats (5) Anxiety Code(s): F41.9 - Anxiety disorder, unspecified Status: Acute Plan: Anxiety related to multiple medical problems and history Patient lethargic on exam following the regimen below Continue to monitor and reevaluate anxiety medications if needed In ED patient received: Morphine 4 mg IV push Compazine 5 mg IV push Benadryl 25 mg IV push Continue home meds paxil 40mg daily, wellbutrin, and memantine TID (6) CVA, old, cognitive deficits Code(s): I69.319 - Unspecified symptoms and signs involving cognitive functions following cerebral infarction Status: Acute Plan: History of multiple strokes Presents with headache and altered mental status Follow-up neurochecks every 4 Carotid ultrasound: No significant plaques. MRI/MRA: Old infarcts only. No acute infarct CT head: Old bilateral occipital lobe infarcts, greater on right, small old infarct in posterior right cell of pallor hemisphere. No hemorrhage. Continue home meds: aspirin and Plavix (7) CKD (chronic kidney disease) Code(s): N18.9 - Chronic kidney disease, unspecified Status: Acute Plan: Unknown baseline creatinine, kidney problems per Creatinine 1.04 on admission Follow-up creatinine, caution with NSAIDs (8) UTI (urinary tract infection) Code(s): N39.0 - Urinary tract infection, site not specified Status: Acute Plan: Patient asymptomatic, UA: Negative nitrates, moderate leuk esterase, rare bacteria Follow-up urine culture Follow-up blood cultures (9) Nutrition, metabolism, and development symptoms Code(s): R63.8 - Other symptoms and signs concerning food and fluid intake Status: Acute Plan: Fluids: Bedside speech eval to clear for p.o., then regular diet Electrolytes: Follow-up BMP and replete as needed Nutrition: Regular diet DVT prophylaxis: Lovenox 30 subcu daily <Maite Bertrand - 07/11/18 21:30> - Assessment and Plan 57-year-old female, history of severe COPD, headaches, multiple strokes, kidney disease, presents with COPD exacerbation, headache, and epigastric pain. <Maite Bertrand - 07/11/18 21:33> - Attending Attestation The exam, history, and the medical decision-making described in the above note were completed with the assistance of the resident physician. I reviewed and agree with the findings presented. I attest that I had a [id number] encounter with the patient on the same day, and personally performed and documented my assessment and findings in the medical record. Patient seen on admission with the resident team. She is not the best historian but describes having migraine headaches. She becomes concerned about having a stroke and she states in the past she has had headaches which have led to strokes. Recommend sending for her old records. <Annia Cortez - 07/12/18 11:43>
[2018-07-11 18:29] LABS: ABG Base Excess -2.2 mmol/L (-2-2); ABG PCO2 36 mmHg (38-42); ABG PO2 65 mmHg (61-120)
[2018-07-11] MEDS: Azithromycin Inj 500 MG in Sodium Chlor 0.9% Inj 250 ML IV.SIG SCH (19:29)
[2018-07-11] MEDS: Pantoprazole Inj 40 MG Vial IV.PUSH SCH (19:29)
[2018-07-11 19:46] LABS: Baso % (Auto) 0.3 % (0.0-2.0); Eos % (Auto) 0.2 % (0.0-4.0); Hematocrit 38.7 % (35.0-46.0); Hemoglobin 13.2 gm/dL (11.6-15.3); Lymph % (Auto) 9.6 % (9.0-44.0); Mean Corpuscular Hemoglobin 29.6 pg (27.0-34.0); Mean Corpuscular Volume 86.9 fL (80.0-100.0); Mean Platelet Volume 8.2 fL (7.0-11.0); Mono # (Auto) 0.1 th/mm3 (0.0-0.9); Mono % (Auto) 0.5 % (0.0-8.0); Neut # (Auto) 9.4 th/mm3 (1.8-7.7); Neut % (Auto) 89.4 % (16.0-70.0); Platelet Count 310 th/mm3 (150-450); Red Blood Count 4.45 mil/mm3 (4.00-5.30); Red Cell Distribution Width 13.5 % (11.6-17.2); White Blood Count 10.5 th/mm3 (4.0-11.0)
--- NOTE | 2018-07-11 20:07 | MR ---
EXAM DATE: 07/11/2018 7:57 PM EDT AGE/SEX: 57 years / Female INDICATIONS: Cephalgia. Dizziness, nausea. CLINICAL DATA: This is the patient's initial encounter. Patient reports that signs and symptoms have been present for 1 day and indicates a pain score of 0/10. MEDICAL/SURGICAL HISTORY: Cerebrovascular disease. Hypertension. Cholecystectomy. Fusion, lum bar. Left leg ORIF. COMPAR[place] [facility] [place], [place]. [facility] [place], [place]11/2018. . TECHNIQUE: 3D [id number] MRA was performed. Source images, multiplanar STS MIP, and 3D volum e MIP reconstructions were reviewed. FINDINGS: There is excellent visualization of the major intracranial arteries out to the second-order branch ve ssels. There is no evidence for aneurysm, vessel truncation or stenosis, and no evidence for vascula r malformation. CONCLUSION: Within normal limits. No acute occlusive disease. Electronically signed by: Chris Harry MD 07/11/2018 8:06 PM EDT
[2018-07-11 20:09] LABS: Albumin 3.4 g/dL (3.4-5.0); Anion Gap 7 meq/L (5-15); Aspartate Aminotransferase 51 U/L (15-37); Blood Urea Nitrogen 14 mg/dL (7-18); Calcium 8.6 mg/dL (8.5-10.1); Carbon Dioxide 23.7 meq/L (21.0-32.0); Chloride 109 meq/L (98-107); Glomerular Filtration Rate 52 mL/min (>89); Glucose,Random 124 mg/dL (74-106); Sodium 140 meq/L (136-145)
[2018-07-11 20:12] LABS: Alanine Aminotransferase 47 U/L (10-53); Alkaline Phosphatase 147 U/L (45-117); Total Protein 7.3 g/dL (6.4-8.2)
--- NOTE | 2018-07-11 20:16 | MR ---
EXAM DATE: 07/11/2018 8:10 PM EDT AGE/SEX: 57 years / Female INDICATIONS: Cephalgia. Dizziness, nausea. CLINICAL DATA: This is the patient's initial encounter. Patient reports that signs and symptoms have been present for 1 day and indicates a pain score of 0/10. MEDICAL/SURGICAL HISTORY: Cerebrovascular disease. Hypertension. Cholecystectomy. Fusion, lum bar. Left leg ORIF. COMPARISON: [facility] – [place], [place] HEAD W/O CONTRAST, 07/11/2018. [facility] – [place], MRA HEAD W/O CONTRAST, 07/11/2018. . TECHNIQUE: Multiplanar, multisequence examination of the brain was performed without contrast. FINDINGS: Combination of gliosis and encephalomalacia seen in the white matter and cortex of both occipital lob es, right more so than left. There is also an old, small infarct of the right cerebellar hemisphere. There is no associated restricted diffusion here or elsewhere of the brain. No hemorrhage demonstrate d. No mass, mass effect or midline shift. CONCLUSION: 1. 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 2. No acute abnormality. Electronically signed by: Chris Harry MD 07/11/2018 8:14 PM EDT
--- NOTE | 2018-07-11 20:51 | US ---
EXAM DATE: 07/11/2018 8:33 PM EDT AGE/SEX: 57 years / Female INDICATIONS: Headache. CLINICAL DATA: This is the patient's initial encounter. Patient reports that signs and symptoms have been present for 1 day and indicates a pain score of 5/10. MEDICAL/SURGICAL HISTORY: Chronic obstructive pulmonary disease. Cardiovascular accident. High cholesterol. Cholecystectomy. Tubal ligation. Back surgery. COMPARISON: No prior exams available for comparison. VELOCITY PARAMETERS: ICA/CCA Ratio: Right 0.7 , Left 0.6 ICA: Right 66.2 cm/sec, Left 57.5 cm/sec CCA: Right 92.9 cm/sec, Left 94.4 cm/sec ECA: Right 62.7 cm/sec, Left 65.6 cm/sec Vertebral: Right 40.2 cm/sec antegrade, Left 41.7 cm/sec antegrade FINDINGS: Right Carotid: Trace plaque of the bulb and proximal internal carotid artery..The waveforms are with in normal limits. Left Carotid: Trace plaque of the bulb and proximal internal carotid artery. The waveforms are withi n normal limits. Other: None. CONCLUSION: 1. Right Internal Carotid Artery: No significant plaque or narrowing. 2. Left Internal Carotid Artery: No significant plaque or narrowing. Electronically signed by: Chris Harry MD 07/11/2018 8:50 PM EDT
[2018-07-11] MEDS ORDERED: Ketorolac Inj 30 MG/ML (IVP) Vial IV.PUSH PRN (21:24)
[2018-07-12] MEDS: Ketorolac Inj 30 MG/ML (IVP) Vial IV.PUSH SCH ×3 (08:36→22:15)
--- NOTE | 2018-07-12 08:39 | ECG ---
Date Performed: 07/11/2018 Time Performed: 12:04:40 PTAGE: 57 years EKG: Sinus rhythm NORMAL ECG NO PREVIOUS TRACING DOCTOR: Lenny Licea Interpretating Date/Time 07/12/2018 08:31:23
--- NOTE | 2018-07-12 08:47 | ECG ---
Date Performed: 07/12/2018 Time Performed: 00:17:20 PTAGE: 57 years EKG: Sinus rhythm NORMAL ECG PREVIOUS TRACING : 07/11/2018 12.04 DOCTOR: Lenny Licea Interpretating Date/Time 07/12/2018 08:39:00
[2018-07-12] MEDS ORDERED: Enoxaparin Inj 30 MG/0.3 ML Syringe SQ SCH (09:00)
[2018-07-12] MEDS ORDERED: Butalbital/ASA/Caff 50/325/40 Capsule PO ONE (09:00)
[2018-07-12] MEDS: buPROPion 100 MG Tablet PO SCH (09:53)
--- NOTE | 2018-07-12 10:20 | P.HPFP ---
History of Present Illness Primary Care Physician: No Primary Care Physician History of Present Illness: 57-year-old female, history of severe COPD, headaches, multiple strokes, kidney disease, presents with COPD exacerbation, headache, and epigastric pain. All of her symptoms started at 11:45AM this morning in the store. She got dizzy and nauseas, and drove her to the ED. During time of exam, pt is s/p morphine dosing and is somewhat confused and having difficulty answering questions. The stated yesterday she stopped the cart in the middle of the store and said she was dizzy and nauseas and wanted to go sit in the car. In the car she was slumped against the door and "looked really sick". She was complaining of headache over the day; it started in the morning when she woke up and progressively got worse and worse over the day. She did not appear to have any difficulty breathing. She was holding her chest and saying she had "sharp pains in the middle" of her chest. She seemed to be somewhat altered/ confused, however this does happen to her occasionally since her strokes. After arriving to the ED, her CP was relieved with nitro, nausea was relieved, but her headache remained. She stated her headaches were often one-sided throbbing pounding relieved by rest made worse by light or sound. When questioned as to her frequency she said they happen as often as once a week. She said the best treatment was to sleep for about a day and a half and then the headache would usually go away. When questioned about medication to prevent migraine she stated that she was taking meclizine to help prevent dementia. Some of her history would need to be verified by old records obviously. - Diagnosis (1) COPD (chronic obstructive pulmonary disease) (2) Headache (3) Diarrhea (4) Epigastric pain (5) Anxiety (6) CVA, old, cognitive deficits (7) CKD (chronic kidney disease) (8) UTI (urinary tract infection) (9) Nutrition, metabolism, and development symptoms Review of Systems other (Please see her history and physical from yesterday) Constitutional: Reports headache(s), Denies anorexia, Denies body ache(s), Denies chills, Denies weakness Eyes: Reports sensitivity to light, Denies bulging eyes, Denies change in vision , Denies dry eyes, Denies loss of vision Ears, Nose, Mouth, and Throat: Reports headache(s), Denies difficulty swallowing , Denies ear discharge, Denies hearing loss, Denies mouth lesions, Denies nasal discharge, Denies poor balance, Denies ringing in the ears, Denies tongue swelling Cardiovascular: Denies chest pain, Denies chest pain at rest, Denies chest pain with activity, Denies fainting, Denies fast heart rate, Denies irregular heart rhythm (She had epigastric pain when she was in the emergency department) Respiratory: Denies change in phlegm color, Denies chest congestion, Denies coughing up blood, Denies shortness of breath Gastrointestinal: Reports abdominal pain, Reports loose stools (Frequently as an outpatient), Reports nausea (Mainly with her headaches), Denies belching, Denies bloating, Denies bright, red blood in stools, Denies change in bowel habits, Denies constipation Musculoskeletal: Denies abnormal walking, Denies radiating pain into limb Neurologic: Denies abnormal hearing, Denies abnormal movements, Denies abnormal speech, Denies abnormal walking Psychiatric: Reports confusion PMFSH - History History Provided By: Patient, Family Member - Medical History Medical History: Medical History (Last Reviewed 07/12/18 @ 08:36 by Jory Hill Track Laying Supervisor, DRIVE AWAY DRIVER) Asthma COPD (chronic obstructive pulmonary disease) CVA (cerebral vascular accident) FHx: cholecystectomy High cholesterol - Surgical History Surgical History: Surgical History (Last Reviewed 07/11/18 @ 17:24 by Maite Bertrand MD, R2) H/O tubal ligation Previous back surgery - Tobacco History Second Hand Smoke Exposure: Yes Tobacco Use In Past 30 Days: Yes Smoking Status: Current every day smoker (1 ppd x 40 years) Tobacco Type: Cigarettes - Alcohol History How Often Do You Have a Drink Containing Alcohol: Never - Substance Use History Substance History: No History of Abuse - Travel History History of Recent Travel: No Recent Travel in the [place] Within the Last 8 Weeks: No Recent Travel Out of the Country Within the Last 8 Weeks: No - Immunization History Tetanus Immunization: Unsure Hx Influenza Vaccine This Season: Yes Medications and Allergies Active Medications: Active Medications Albuterol (Albuterol Neb (Prn)) 2.5 mg NEB Q2HR NEB PRN PRN Reason: SHORTNESS OF BREATH Albuterol (Duoneb Neb (Richard)) 1 ampul NEB Q4HR NEB RICHARD Last Admin: 07/12/18 08:30 Dose: 1 ampul Aspirin (Aspirin Chew) 81 mg PO DAILY [facility] Last Admin: 07/12/18 08:35 Dose: 81 mg Bupropion HCl (Wellbutrin) 100 mg PO DAILY [facility] Last Admin: 07/12/18 09:53 Dose: 100 mg Clopidogrel Bisulfate (Plavix) 75 mg PO DAILY [facility] Last Admin: 07/12/18 08:34 Dose: 75 mg Azithromycin 500 mg/ Sodium (Chloride) 250 mls @ 250 mls/hr IV.SIG Q24H [facility] Last Infusion: 07/12/18 04:00 Dose: Infused Acetaminophen (Ofirmev Inj) 1,000 mg in 100 mls @ 400 mls/hr IV.SIG Q6H PRN PRN Reason: PAIN SCALE 1 TO 10 Last Admin: 07/12/18 08:37 Dose: 400 mls/hr Ketorolac Tromethamine (Toradol Inj) 30 mg IV.PUSH PRN PRN PRN Reason: MIGRAINE HEADACHE Stop: 07/16/18 21:23 Last Admin: 07/11/18 22:30 Dose: 30 mg Ketorolac Tromethamine (Toradol Inj) 30 mg IV.PUSH Q6H [facility] Stop: 07/17/18 08:59 Last Admin: 07/12/18 08:36 Dose: Not Given Memantine (Namenda) 5 mg PO TID [facility] Last Admin: 07/12/18 09:53 Dose: 5 mg Pantoprazole Sodium (Protonix Inj) 40 mg IV.PUSH Q24H [facility] Last Admin: 07/11/18 19:29 Dose: 40 mg Paroxetine HCl (Paxil) 40 mg PO DAILY [facility] Last Admin: 07/12/18 08:35 Dose: 40 mg Sodium Chloride (Ns Flush) 2 ml IV.FLUSH BID [facility] Last Admin: 07/11/18 21:26 Dose: 2 ml Sodium Chloride (Ns Flush) 2 ml IV.FLUSH PRN PRN PRN Reason: FLUSH AFTER USING IV ACCESS Allergies Allergy/AdvReac Type Severity Reaction Status Date / Time ciprofloxacin Allergy Intermediate Rash Verified 07/11/18 21:35 lisinopril Allergy Mild Cough Verified 07/11/18 21:34 metformin AdvReac Mild Gastrointestinal Verified 07/11/18 21:34 Upset Exam Vital signs: Vital Signs 07/11/18 11:50 07/11/18 11:59 07/11/18 12:00 Temperature 98.1 F Pulse Rate 84 92 H Pulse Rate [Right Radial] Respiratory Rate 13 18 Blood Pressure 178/91 H 121/79 Blood Pressure [Left Arm] Blood Pressure [Right Arm] Pulse Oximetry 96 98 98 07/11/18 12:05 07/11/18 12:22 07/11/18 12:25 Temperature 98.6 F Pulse Rate 85 85 92 H Pulse Rate [Right Radial] 85 92 H Respiratory Rate 18 15 18 Blood Pressure 135/87 139/60 Blood Pressure [Left Arm] 139/60 Blood Pressure [Right Arm] 135/87 139/60 Pulse Oximetry 98 97 95 07/11/18 13:00 07/11/18 14:00 07/11/18 15:00 Temperature Pulse Rate 92 H 88 81 Pulse Rate [Right Radial] Respiratory Rate 18 18 20 Blood Pressure 121/79 171/88 H 137/77 Blood Pressure [Left Arm] Blood Pressure [Right Arm] Pulse Oximetry 95 98 97 07/11/18 18:00 07/11/18 19:30 07/11/18 20:32 Temperature 98.1 F Pulse Rate 78 80 Pulse Rate [Right Radial] Respiratory Rate 13 17 Blood Pressure 113/62 104/58 L Blood Pressure [Left Arm] Blood Pressure [Right Arm] Pulse Oximetry 98 96 94 L 07/11/18 21:29 07/12/18 00:13 07/12/18 00:24 Temperature 98.3 F Pulse Rate 85 78 Pulse Rate [Right Radial] Respiratory Rate 18 16 16 Blood Pressure 102/57 L Blood Pressure [Left Arm] Blood Pressure [Right Arm] Pulse Oximetry 95 95 07/12/18 00:27 07/12/18 03:18 07/12/18 04:14 Temperature 98.0 F Pulse Rate 81 84 84 Pulse Rate [Right Radial] Respiratory Rate 16 16 Blood Pressure 107/55 L Blood Pressure [Left Arm] Blood Pressure [Right Arm] Pulse Oximetry 96 07/12/18 04:16 07/12/18 08:00 07/12/18 08:34 Temperature 97.9 F Pulse Rate 82 94 H 96 H Pulse Rate [Right Radial] Respiratory Rate 16 16 19 Blood Pressure 100/54 L Blood Pressure [Left Arm] Blood Pressure [Right Arm] Pulse Oximetry 94 L Intake & Output 07/11/18 07/12/18 07/12/18 18:59 06:59 18:59 Intake Total 250 / 250 Balance 250 / 250 Weight 65.7 kg Intake: IV 250 / 250 Azithromycin Inj 500 MG In NS 250 / 250 Inj 250 ML @ 250 mls/hr IV.SIG Q24H RICHARD Rx#:[id number] Other: # Voids 1 - Constitutional no acute distress, mild distress, average body habitus, cooperative - Routine HEENT Exam Head: Present: normocephalic, atraumatic. Absent: cushingoid faces Eye: Present: EOMI, PERRL ENT: Present: external ear normal. Absent: septal deviation - Routine Neck Exam Present: supple, full ROM - Routine Chest/Breast/Axilla Exam Chest wall: Absent: tenderness, chest tube - Routine Respiratory Exam Present: decreased breath sounds, wheezes. Absent: accessory muscle use, rales , respiratory distress, rhonchi - Routine Abdominal Exam Present: soft. Absent: tenderness, distended, rebound, guarding - Routine Extremities Exam Present: full ROM. Absent: cyanosis - Routine Skin Exam Present: intact. Absent: erythema, mottling, petechiae - Routine Neurological Exam Present: alert, oriented X3, moving all extremities, normal tone, vision grossly intact, hearing grossly intact, normal speech. Absent: sensory deficit , motor deficit, altered mental status, nystagmus, hemineglect, tremors, asterixis Results - Labs Result diagrams: 07/11/18 19:20 07/11/18 19:20 Abnormal lab results 07/11/18 07/11/18 07/11/18 Range/Units 12:10 12:10 12:10 WBC 12.5 H (4.0-11.0) th/mm3 Neut % (Auto) (16.0-70.0) % Eos % (Auto) 4.2 H (0.0-4.0) % Neut # (Auto) (1.8-7.7) th/mm3 Eos # (Auto) 0.5 H (0.0-0.4) th/mm3 APTT 30.8 H (24.3-30.1) sec O2 Saturation (90-100) % ABG pCO2 (38-42) mmHg ABG Base Excess (-2-2) mmol/L Chloride 108 H (98-107) meq/L Creatinine 1.04 H (0.50-1.00) mg/dL Estimated GFR 54 L (>89) mL/min Random Glucose (74-106) mg/dL AST (15-37) U/L Alkaline Phosphatase 130 H (45-117) U/L Troponin I Less than 0.02 L (0.02-0.05) ng/mL Urine Clarity (Clear) Ur Leukocyte Esterase (Negative) Urine WBC (0-5) /hpf Urine Bacteria (None) /hpf Urine Mucus (Occasional) /lpf 07/11/18 07/11/18 07/11/18 Range/Units 15:45 18:10 19:20 WBC (4.0-11.0) th/mm3 Neut % (Auto) 89.4 H (16.0-70.0) % Eos % (Auto) (0.0-4.0) % Neut # (Auto) 9.4 H (1.8-7.7) th/mm3 Eos # (Auto) (0.0-0.4) th/mm3 APTT (24.3-30.1) sec O2 Saturation 89 L* (90-100) % ABG pCO2 36 L (38-42) mmHg ABG Base Excess -2.2 L (-2-2) mmol/L Chloride (98-107) meq/L Creatinine (0.50-1.00) mg/dL Estimated GFR (>89) mL/min Random Glucose (74-106) mg/dL AST (15-37) U/L Alkaline Phosphatase (45-117) U/L Troponin I (0.02-0.05) ng/mL Urine Clarity Hazy H (Clear) Ur Leukocyte Esterase Moderate H (Negative) Urine WBC 14 H (0-5) /hpf Urine Bacteria Rare H (None) /hpf Urine Mucus Few H (Occasional) /lpf 07/11/18 07/11/18 07/12/18 Range/Units 19:20 19:20 00:30 WBC (4.0-11.0) th/mm3 Neut % (Auto) (16.0-70.0) % Eos % (Auto) (0.0-4.0) % Neut # (Auto) (1.8-7.7) th/mm3 Eos # (Auto) (0.0-0.4) th/mm3 APTT (24.3-30.1) sec O2 Saturation (90-100) % ABG pCO2 (38-42) mmHg ABG Base Excess (-2-2) mmol/L Chloride 109 H (98-107) meq/L Creatinine 1.08 H (0.50-1.00) mg/dL Estimated GFR 52 L (>89) mL/min Random Glucose 124 H (74-106) mg/dL AST 51 H (15-37) U/L Alkaline Phosphatase 147 H (45-117) U/L Troponin I Less than 0.02 L Less than 0.02 L (0.02-0.05) ng/mL Urine Clarity (Clear) Ur Leukocyte Esterase (Negative) Urine WBC (0-5) /hpf Urine Bacteria (None) /hpf Urine Mucus (Occasional) /lpf Short CBC 07/11/18 07/11/18 Range/Units 12:10 19:20 WBC 12.5 H 10.5 (4.0-11.0) th/mm3 Hgb 14.2 13.2 (11.6-15.3) gm/dL Hct 43.2 38.7 (35.0-46.0) % Plt Count 342 310 (150-450) th/mm3 BMP 07/11/18 07/11/18 12:10 19:20 Sodium 140 140 Potassium 4.2 4.0 Chloride 108 H 109 H Carbon Dioxide 22.5 23.7 BUN 14 14 Creatinine 1.04 H 1.08 H Calcium 9.1 8.6 Cardiac Enzymes 07/11/18 07/11/18 07/12/18 Range/Units 12:10 19:20 00:30 Troponin I Less than 0.02 L Less than 0.02 L Less than 0.02 L (0.02-0.05) ng/mL Liver Function 07/11/18 07/11/18 Range/Units 12:10 19:20 Total Bilirubin 0.2 0.2 (0.2-1.0) mg/dL AST 26 51 H (15-37) U/L ALT 34 47 (10-53) U/L Alkaline Phosphatase 130 H 147 H (45-117) U/L Albumin 3.9 3.4 (3.4-5.0) g/dL Urine 07/11/18 Range/Units 15:45 Urine Color Yellow (Yellw/Straw) Urine Clarity Hazy H (Clear) Urine pH 5.0 (5.0-8.5) Ur Specific [place] 1.011 (1.002-1.035) Urine Protein Negative (Neg-Trace) mg/dL Urine Glucose (UA) Negative (Negative) mg/dL - Imaging Impressions Carotid Doppler Study 07/11/18 00:00 CONCLUSION: 1. Right Internal Carotid Artery: No significant plaque or narrowing. 2. Left Internal Carotid Artery: No significant plaque or narrowing. Head MRI 07/11/18 00:00 CONCLUSION: 1. 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 2. No acute abnormality. Head MRA 07/11/18 00:00 CONCLUSION: Within normal limits. No acute occlusive disease. Chest X-Ray 07/11/18 11:59 CONCLUSION: No acute cardiopulmonary disease. Head CT 07/11/18 12:07 CONCLUSION: 1. 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 2. Small old infarct in the posterior right cerebellar hemisphere. 3. No focal or acute intracranial hemorrhage. . Caprini VTE Risk Assessment Caprini VTE Risk Assessment: No/Low Risk (score <= 1) Caprini Risk Assessment Model: Point Value = 1 Point Value = 2 Point Value = 3 Point Value = 5 Age 41-60 Minor surgery BMI > 25 kg/m2 Swollen legs Varicose veins or History of unexplained or recurrent spontaneous Oral contraceptives or hormone replacement Sepsis (< 1 month) Serious lung disease, including pneumonia (< 1 month) Abnormal pulmonary function Acute myocardial infarction Congestive heart failure (< 1 month) History of inflammatory bowel disease Medical patient at bed rest Age 61-74 Arthroscopic surgery Major open surgery (> 45 min) Laparoscopic surgery (> 45 min) Malignancy Confined to bed (> 72 hours) Immobilizing plaster cast Central venous access Age >= 75 History of VTE Family history of VTE Factor V Leiden Prothrombin [id number] Lupus anticoagulant Anticardiolipin antibodies Elevated serum homocysteine Heparin-induced thrombocytopenia Other congenital or acquired thrombophilia Stroke (< 1 month) Elective arthroplasty Hip, pelvis, or leg fracture Acute spinal cord injury (< 1 month) Prophylaxis Regimen: Total Risk Factor Score Risk Level Prophylaxis Regimen 0-1 Low Early ambulation 2 Moderate Order ONE of the following: *Sequential Compression Device (SCD) *Heparin 5000 units SQ BID 3-4 Higher Order ONE of the following medications: *Heparin 5000 units SQ TID *Enoxaparin/Lovenox 40 mg SQ daily (WT < 150 kg, CrCl > 30 mL/min) *Enoxaparin/Lovenox 30 mg SQ daily (WT < 150 kg, CrCl > 10-29 mL/min) *Enoxaparin/Lovenox 30 mg SQ BID (WT < 150 kg, CrCl > 30 mL/min) AND/OR *Sequential Compression Device (SCD) 5 or more Highest Order ONE of the following medications: *Heparin 5000 units SQ TID (Preferred with Epidurals) *Enoxaparin/Lovenox 40 mg SQ daily (WT < 150 kg, CrCl > 30 mL/min) *Enoxaparin/Lovenox 30 mg SQ daily (WT < 150 kg, CrCl > 10-29 mL/min) *Enoxaparin/Lovenox 30 mg SQ BID (WT < 150 kg, CrCl > 30 mL/min) AND *Sequential Compression Device (SCD) Assessment and Plan - Assessment (1) COPD (chronic obstructive pulmonary disease) Code(s): J44.9 - Chronic obstructive pulmonary disease, unspecified Status: Acute Plan: Advanced COPD, history of multiple hospitalizations, poor management, wheezing on physical exam No signs of sepsis, vital signs stable O2 as needed to maintain O2 sats over 92% Monitor pulse ox Vital signs every 4 hours Follow-up with COPD educator Follow-up respiratory panel Follow-up blood cultures, sputum cultures Duo nebs every 4 hours scheduled Azithromycin 500 mg IV every 24 hours Status post DEXA 80 mg IV push in ED Added Protonix 40 mg IV push for steroid use Consider a walk test prior to discharge. (2) Headache Code(s): R51 - Headache Status: Acute Plan: May be due to deoxygenation versus panic disorder versus stroke/cranial effects Patient has history of headaches, with nausea, and has used meclizine antihistamine in the past -Will restart meclizine 25 mg daily when patient tolerates p.o. -We will try high-dose aspirin when patient tolerates p.o. -Added IV Toradol as needed for now -Ideally we avoid opiate analgesics Follow-up workup for above etiologies ABG: PH 7.40, PCO2: 36, O2 saturation: 89 Concern for migraines based on photophobia and phonophobia recurrence of the same headaches which is the best history I can gather from her today. She will need to see a neurologist and has migraine with aura is associated with CVAs. From what she told me she is having headaches approximately once a week though she is not a great historian. If this is true she needs prevention to keep her migraines from recurring. She is very dedicated to taking meclizine but she will need to see neurology and likely be placed on other medications that are preventative. (3) Diarrhea Code(s): R19.7 - Diarrhea, unspecified Status: Acute Plan: May be related to pneumonia versus GI viral illness Follow-up progression with antibiotic treatment She states she has diarrhea not infrequently. Again she is not a good historian and it is difficult to figure out exactly what her history is. However the diarrhea according to her is not new and is recurrent without an obvious infectious source. She will be able to have this followed up as an outpatient with her new primary care doctor and hopefully the records will be able to be obtained from [place] (4) Epigastric pain Code(s): R10.13 - Epigastric pain Status: Acute Plan: Epigastric pain may be due to cardiac origin versus esophagitis versus PE Follow-up ACS workup: Troponin negative EKG negative 1 Hemoglobin stable, 14 Add Protonix 40 mg IV daily f/u FOBT VSS, will consider D-Dimer if tachy/tachypneic/desats She did not have true chest pain she had epigastric pain evidently when she came to the emergency department she was not complaining about it this morning. (5) Anxiety Code(s): F41.9 - Anxiety disorder, unspecified Status: Acute Plan: Anxiety related to multiple medical problems and history Patient lethargic on exam following the regimen below Continue to monitor and reevaluate anxiety medications if needed In ED patient received: Morphine 4 mg IV push Compazine 5 mg IV push Benadryl 25 mg IV push Continue home meds paxil 40mg daily, wellbutrin, and memantine TID (6) CVA, old, cognitive deficits Code(s): I69.319 - Unspecified symptoms and signs involving cognitive functions following cerebral infarction Status: Acute Plan: History of multiple strokes Presents with headache and altered mental status Follow-up neurochecks every 4 Carotid ultrasound: No significant plaques. MRI/MRA: Old infarcts only. No acute infarct CT head: Old bilateral occipital lobe infarcts, greater on right, small old infarct in posterior right cell of pallor hemisphere. No hemorrhage. Continue home meds: aspirin and Plavix Thankfully her MRI did not show any new strokes. (7) CKD (chronic kidney disease) Code(s): N18.9 - Chronic kidney disease, unspecified Status: Acute Plan: Unknown baseline creatinine, kidney problems per Creatinine 1.04 on admission Follow-up creatinine, caution with NSAIDs (8) UTI (urinary tract infection) Code(s): N39.0 - Urinary tract infection, site not specified Status: Acute Plan: Patient asymptomatic, UA: Negative nitrates, moderate leuk esterase, rare bacteria Follow-up urine culture Follow-up blood cultures (9) Nutrition, metabolism, and development symptoms Code(s): R63.8 - Other symptoms and signs concerning food and fluid intake Status: Acute Plan: Fluids: Bedside speech eval to clear for p.o., then regular diet Electrolytes: Follow-up BMP and replete as needed Nutrition: Regular diet DVT prophylaxis: Lovenox 30 subcu daily - Assessment and Plan 57-year-old female, history of severe COPD, headaches, multiple strokes, kidney disease, presents with COPD exacerbation, headache, and epigastric pain. Discharge Planning: Fortunately she did not have any stroke. However she is still having her headache which based on the history that she is given us seems to be migraine. Will continue to try different medications to get her headache better and then hopefully she will be able to go home with good follow-up with primary care as well as neurology. H&P: Quality - VTE Deep Vein Thrombosis/Pulmonary Embolism Present on Admission: No (1) COPD (chronic obstructive pulmonary disease) Qualifiers: COPD type: COPD with acute exacerbation Qualified Code(s): J44.1 - Chronic obstructive pulmonary disease with (acute) exacerbation (2) Headache Qualifiers: Headache type: other headache syndrome Qualified Code(s): G44.89 - Other headache syndrome (3) Diarrhea Qualifiers: Diarrhea type: unspecified type Qualified Code(s): R19.7 - Diarrhea, unspecified (8) UTI (urinary tract infection) Qualifiers: Urinary tract infection type: acute cystitis Hematuria presence: without hematuria Qualified Code(s): N30.00 - Acute cystitis without hematuria
[2018-07-12 12:29] LABS: Baso % (Auto) 0.1 % (0.0-2.0); Hematocrit 38.8 % (35.0-46.0); Hemoglobin 12.6 gm/dL (11.6-15.3); Lymph # (Auto) 1.8 th/mm3 (1.0-4.8); Lymph % (Auto) 7.4 % (9.0-44.0); Mean Corpuscular HGB Conc 32.4 % (32.0-36.0); Mean Corpuscular Hemoglobin 28.8 pg (27.0-34.0); Mean Corpuscular Volume 88.9 fL (80.0-100.0); Mean Platelet Volume 8.5 fL (7.0-11.0); Mono # (Auto) 0.6 th/mm3 (0.0-0.9); Mono % (Auto) 2.6 % (0.0-8.0); Neut % (Auto) 89.9 % (16.0-70.0); Platelet Count 336 th/mm3 (150-450); Red Blood Count 4.36 mil/mm3 (4.00-5.30); Red Cell Distribution Width 14.1 % (11.6-17.2); White Blood Count 24.5 th/mm3 (4.0-11.0)
[2018-07-12 12:53] LABS: Alanine Aminotransferase 40 U/L (10-53); Albumin 3.6 g/dL (3.4-5.0); Anion Gap 11 meq/L (5-15); Aspartate Aminotransferase 29 U/L (15-37); Blood Urea Nitrogen 23 mg/dL (7-18); Calcium 8.7 mg/dL (8.5-10.1); Carbon Dioxide 22.7 meq/L (21.0-32.0); Chloride 105 meq/L (98-107); Glomerular Filtration Rate 36 mL/min (>89); Glucose,Random 170 mg/dL (74-106); Potassium 3.6 meq/L (3.5-5.1); Sodium 139 meq/L (136-145)
[2018-07-12 12:56] LABS: Alkaline Phosphatase 137 U/L (45-117); Total Protein 7.2 g/dL (6.4-8.2)
[2018-07-12] MEDS ORDERED: Sod Chloride 0.9% Inj 1,000 ML IV.SIG ONE ×2 (12:58→16:54)
[2018-07-12 13:05] LABS: Lymphocytes 6 % (9-44); Monocytes 1 % (0-8); Ovalocytes 1+; Platelet Estimate Normal (Normal); Platelet Morphology Normal (Normal)
[2018-07-12] MEDS ORDERED: predniSONE 20 MG Tablet PO ONE (16:29)
--- NOTE | 2018-07-12 16:59 | P.PNADD ---
Addendum to Inpatient Note Reason for Addendum: Additional Documentation Additional information: S: Following morning rounds Amanda Perez and Denilson were paged due to the pt becoming more hypotensive w/BP at 87/49. Amanda Oreilly and Chris were able to see the pt at 1600 hours after several orders had been placed to stabilize pt. Before arriving, pt had been given 1L NS fluid bolus and Rocephin 1g IV. Labs including repeat blood cultures and serum lactate were ordered. The Lactate came back elevated to 3.0. The pt is feeling worse with coughing and continued CABRERA. She also feels like she is warm. She states she plans to quit cigarettes for good again. Met with pt's who believes the pt has several inhalers at home but is unsure what her home meds are. O: Vital signs: Vital Signs - 8 hr 07/12/18 09:00 07/12/18 11:35 07/12/18 14:24 Temperature 98.3 F Pulse Rate 101 H 108 H 104 H Respiratory Rate 16 Blood Pressure 87/49 L Pulse Oximetry 92 L 07/12/18 15:00 07/12/18 16:00 Temperature 98.0 F Pulse Rate 91 H Respiratory Rate 16 Blood Pressure 107/52 L 93/48 L Pulse Oximetry 96 GENERAL: Well-developed, obese female lying in bed looks fatigued and tired. SKIN: Warm and dry. No lesions. HEAD: Normocephalic. Atraumatic EYES: No scleral icterus. No injection or drainage. NECK: Supple, trachea midline. No JVD or lymphadenopathy. CARDIOVASCULAR: Regular rate and rhythm without murmurs, gallops, or rubs. RESPIRATORY: Breath sounds with inspiratory and expiratory wheezing on left lung bautista and mild expiratory wheeze in lung bautista. No accessory muscle use. On 3L NC. GASTROINTESTINAL: Abdomen soft, non-tender, nondistended. MUSCULOSKELETAL: No cyanosis, or edema. BACK: Nontender without obvious deformity. No CVA tenderness. A/P: 57 YO female with COPD exacerbation and UTI with hypotension initially responsive to IVF bolus, Lactate 3.0. 1. COPD exacerbation with some clinical decline today -Lactate 3.0 -Repeat blood cultures -Duonebs q8h alternate with albuterol nebs -Albuterol nebs q8h alternate with duonebs -Albuterol q2h PRN -Prednisone 60 mg PO once -Prednisone 40 mg daily x5 beginning 07/13 -Discussed home meds with pt's who will bring meds to hospital tomorrow 2. "Asymptomatic" UTI with Hx of asymptomatic UTIs -Rocephin 1g IV -Urine cx pending -Blood cx as above -Second IVF bolus at 1600 3. Headache -Toradol 30mg IV q6h SW Dr Perez and DW Dr Cortez
[2018-07-12] MEDS: Pantoprazole Inj 40 MG Vial IV.PUSH SCH (18:33)
[2018-07-12] MEDS: Azithromycin Inj 500 MG in Sodium Chlor 0.9% Inj 250 ML IV.SIG SCH (20:52)
[2018-07-13] MEDS ORDERED: Zolpidem Tartrate 5 MG Tablet PO ONE (03:32)
[2018-07-13] MEDS: Ketorolac Inj 30 MG/ML (IVP) Vial IV.PUSH SCH ×4 (04:02→20:27)
[2018-07-13 07:31] LABS: Calcium 8.3 mg/dL (8.5-10.1); Carbon Dioxide 22.3 meq/L (21.0-32.0); Potassium 4.5 meq/L (3.5-5.1)
[2018-07-13] MEDS: buPROPion 100 MG Tablet PO SCH (08:41)
[2018-07-13] MEDS: predniSONE 20 MG Tablet PO SCH (08:42)
--- NOTE | 2018-07-13 11:13 | P.PNFP ---
Subjective Interval history: Patient seen and examined this morning. Overnight, patient was hypotensive and short of breath. This morning patient states that she feels weak and sick. Her breathing is a little worse. She is experiencing chest pain with coughing. Her cough is started to be productive of clear sputum. After inquiring about her previous hospitalizations, her stated that she had a problem with hypotension during her last 2 hospitalizations which were for COPD exacerbation. She was hospitalized 4 times in the last year. She does not use her inhalers regularly. brought in her medications from home which consisted of Spiriva, Symbicort, Ventolin, Proventil, and DuoNeb nebulizers. She gave us permission to contact her previous doctor, Dr. Canela. She was last hospitalized in October at [facility] in [place], [place]. No hx of intubations. 1500: Spoke with Dr. Canela ([phone]), he stated that pt was not on any inhalers chronically. 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 The last medications he had her on for this were trazodone and meclizine. He also stated that she did not have "much dementia." She was always with it. 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 She did not have a neurologist in [place] due to not getting along with the last one. <Cheri Cline G - 07/13/18 16:47> Results - Labs Result diagrams: 07/14/18 06:25 07/14/18 06:25 <Annia Cortez - 07/14/18 15:19> Abnormal lab results 07/14/18 07/14/18 Range/Units 06:25 06:25 WBC 15.8 H (4.0-11.0) th/mm3 RBC 3.72 L (4.00-5.30) mil/mm3 Hgb 10.7 L (11.6-15.3) gm/dL Hct 33.0 L (35.0-46.0) % Neut # (Auto) 10.5 H (1.8-7.7) th/mm3 Sodium 146 H (136-145) meq/L Chloride 113 H (98-107) meq/L Estimated GFR 62 L (>89) mL/min Random Glucose 69 L (74-106) mg/dL Calcium 8.4 L (8.5-10.1) mg/dL Total Bilirubin 0.1 L (0.2-1.0) mg/dL Total Protein 5.8 L D (6.4-8.2) g/dL Albumin 2.9 L D (3.4-5.0) g/dL Short CBC 07/14/18 Range/Units 06:25 WBC 15.8 H (4.0-11.0) th/mm3 Hgb 10.7 L (11.6-15.3) gm/dL Hct 33.0 L (35.0-46.0) % Plt Count 263 (150-450) th/mm3 BMP 07/14/18 06:25 Sodium 146 H Potassium 3.7 D Chloride 113 H Carbon Dioxide 27.2 BUN 18 Creatinine 0.93 Calcium 8.4 L Liver Function 07/14/18 Range/Units 06:25 Total Bilirubin 0.1 L (0.2-1.0) mg/dL AST 18 (15-37) U/L ALT 27 (10-53) U/L Alkaline Phosphatase 87 (45-117) U/L Albumin 2.9 L D (3.4-5.0) g/dL <Annia Cortez - 07/14/18 15:19> Abnormal lab results 07/12/18 07/12/18 07/12/18 Range/Units 11:20 11:20 13:57 WBC 24.5 H D (4.0-11.0) th/mm3 Neut % (Auto) 89.9 H (16.0-70.0) % Lymph % (Auto) 7.4 L (9.0-44.0) % Neut # (Auto) 22.0 H (1.8-7.7) th/mm3 Seg Neuts % (Manual) 85 H (16-70) % Band Neuts % (Manual) 8 H (0-6) % Lymphocytes % (Manual) 6 L (9-44) % Abs Neuts (Manual) 22.8 H (1.8-7.7) th/mm3 Ovalocytes 1+ H (None) Chloride (98-107) meq/L BUN 23 H (7-18) mg/dL Creatinine 1.50 H (0.50-1.00) mg/dL Estimated GFR 36 L (>89) mL/min Random Glucose 170 H (74-106) mg/dL Lactic Acid 3.0 H (0.4-2.0) mmol/L Calcium (8.5-10.1) mg/dL Alkaline Phosphatase 137 H (45-117) U/L 07/13/18 Range/Units 05:35 WBC (4.0-11.0) th/mm3 Neut % (Auto) (16.0-70.0) % Lymph % (Auto) (9.0-44.0) % Neut # (Auto) (1.8-7.7) th/mm3 Seg Neuts % (Manual) (16-70) % Band Neuts % (Manual) (0-6) % Lymphocytes % (Manual) (9-44) % Abs Neuts (Manual) (1.8-7.7) th/mm3 Ovalocytes (None) Chloride 111 H (98-107) meq/L BUN 19 H (7-18) mg/dL Creatinine (0.50-1.00) mg/dL Estimated GFR 61 L (>89) mL/min Random Glucose 124 H (74-106) mg/dL Lactic Acid (0.4-2.0) mmol/L Calcium 8.3 L (8.5-10.1) mg/dL Alkaline Phosphatase (45-117) U/L Short CBC 07/12/18 Range/Units 11:20 WBC 24.5 H D (4.0-11.0) th/mm3 Hgb 12.6 (11.6-15.3) gm/dL Hct 38.8 (35.0-46.0) % Plt Count 336 (150-450) th/mm3 BMP 07/12/18 07/13/18 11:20 05:35 Sodium 139 143 Potassium 3.6 4.5 D Chloride 105 111 H Carbon Dioxide 22.7 22.3 BUN 23 H 19 H Creatinine 1.50 H 0.94 Calcium 8.7 8.3 L Liver Function 07/12/18 Range/Units 11:20 Total Bilirubin 0.2 (0.2-1.0) mg/dL AST 29 (15-37) U/L ALT 40 (10-53) U/L Alkaline Phosphatase 137 H (45-117) U/L Albumin 3.6 (3.4-5.0) g/dL <Cheri Cline Domiink - 07/13/18 11:13> - Imaging Impressions Carotid Doppler Study 07/11/18 00:00 CONCLUSION: 1. Right Internal Carotid Artery: No significant plaque or narrowing. 2. Left Internal Carotid Artery: No significant plaque or narrowing. Head MRI 07/11/18 00:00 CONCLUSION: 1. 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 2. No acute abnormality. Head MRA 07/11/18 00:00 CONCLUSION: Within normal limits. No acute occlusive disease. Chest X-Ray 07/11/18 11:59 CONCLUSION: No acute cardiopulmonary disease. Head CT 07/11/18 12:07 CONCLUSION: 1. 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 2. Small old infarct in the posterior right cerebellar hemisphere. 3. No focal or acute intracranial hemorrhage. . <Cheri Cline Dominik - 07/13/18 11:13> Physical Exam Vital signs: Vital Signs 07/13/18 15:19 07/13/18 16:22 07/13/18 19:30 Temperature 97.7 F Pulse Rate 95 H 92 H 88 Respiratory Rate 16 16 18 Blood Pressure 115/59 L Pulse Oximetry 96 98 07/13/18 20:00 07/13/18 23:34 07/14/18 00:00 Temperature 97.6 F Pulse Rate 90 78 76 Respiratory Rate 18 18 17 Blood Pressure 127/63 121/60 Pulse Oximetry 99 97 07/14/18 02:57 07/14/18 04:00 07/14/18 06:58 Temperature Pulse Rate 79 78 77 Respiratory Rate 18 Blood Pressure Pulse Oximetry 07/14/18 07:16 07/14/18 08:00 07/14/18 11:18 Temperature 98.1 F Pulse Rate 78 95 H 94 H Respiratory Rate 17 18 16 Blood Pressure 134/75 Pulse Oximetry 97 94 L 07/14/18 12:00 07/14/18 15:00 Temperature 98.6 F Pulse Rate 96 H 104 H Respiratory Rate 16 18 Blood Pressure 127/61 Pulse Oximetry 96 Intake & Output 07/13/18 07/14/18 07/14/18 18:59 06:59 18:59 Intake Total 580 / 580 350 / 350 Balance 580 / 580 350 / 350 Weight 73.7 kg Intake: IV 100 / 100 350 / 350 Ofirmev Inj 1,000 mg In 100 ml 100 / 100 @ 400 mls/hr IV.SIG Q6H PRN Rx# :[id number] Azithromycin Inj 500 MG In NS 250 / 250 Inj 250 ML @ 250 mls/hr IV.SIG Q24H [facility] Rx#:[id number] Rocephin Inj 1,000 MG In NS Inj 100 / 100 100 ML @ 200 mls/hr IV.SIG Q24H [facility] Rx#:[id number] Oral 480 / 480 <DanaAnnia M - 07/14/18 15:19> Vital Signs 07/12/18 11:35 07/12/18 14:24 07/12/18 15:00 Temperature 98.3 F Pulse Rate 108 H 104 H Respiratory Rate 16 Blood Pressure 87/49 L 107/52 L Pulse Oximetry 92 L 07/12/18 16:00 07/12/18 17:04 07/12/18 19:39 Temperature 98.0 F Pulse Rate 91 H 94 H Respiratory Rate 16 20 Blood Pressure 93/48 L Pulse Oximetry 96 96 07/12/18 19:40 07/12/18 20:00 07/13/18 00:09 Temperature 98.4 F Pulse Rate 98 H 78 94 H Respiratory Rate 21 17 18 Blood Pressure 116/55 L Pulse Oximetry 96 07/13/18 03:28 07/13/18 08:30 07/13/18 08:57 Temperature 97.6 F Pulse Rate 93 H 90 96 H Respiratory Rate 17 18 16 Blood Pressure 132/67 Pulse Oximetry 99 97 Intake & Output 07/12/18 07/13/18 07/13/18 18:59 06:59 18:59 Intake Total 2450 / 2450 Balance 2450 / 2450 Intake: IV 2450 / 2450 Ofirmev Inj 1,000 mg In 100 ml 100 / 100 @ 400 mls/hr IV.SIG Q6H PRN Rx# :[id number] Azithromycin Inj 500 MG In NS 250 / 250 Inj 250 ML @ 250 mls/hr IV.SIG Q24H [facility] Rx#:[id number] NS Inj 1,000 ML @ Wide Open IV. 1999 SIG BOLUS ONE Rx#:[id number] Rocephin Inj 1,000 MG In NS Inj 100 / 100 100 ML @ 200 mls/hr IV.SIG Q24H [facility] Rx#:[id number] Other: # Voids 4 <Cheri Cline - 07/13/18 11:13> Narrative: GENERAL: white female sitting up in bed, in no acute distress SKIN: Warm and dry. HEAD: Atraumatic. Normocephalic. EYES: Pupils equal and round. No scleral icterus. No injection or drainage. ENT: No nasal bleeding or discharge. Mucous membranes pink and moist. NECK: Trachea midline. No JVD. CARDIOVASCULAR: Regular rate and rhythm. RESPIRATORY: Increased work of breathing. Course breath sounds with diffuse end expiratory wheezing. GASTROINTESTINAL: Abdomen soft, non-tender, nondistended. MUSCULOSKELETAL: Extremities without clubbing, cyanosis, or edema. No obvious deformities. NEUROLOGICAL: Awake and alert. No obvious cranial nerve deficits. Motor grossly within normal limits. Normal speech. <Cheri Cline - 07/13/18 11:13> Assessment and Plan - Assessment (1) SIRS (systemic inflammatory response syndrome) Code(s): R65.10 - Systemic inflammatory response syndrome (SIRS) of non- infectious origin without acute organ dysfunction Status: Acute (2) COPD (chronic obstructive pulmonary disease) Code(s): J44.9 - Chronic obstructive pulmonary disease, unspecified Status: Acute (3) Headache Code(s): R51 - Headache Status: Acute (4) Epigastric pain Code(s): R10.13 - Epigastric pain Status: Acute (5) UTI (urinary tract infection) Code(s): N39.0 - Urinary tract infection, site not specified Status: Acute (6) Anxiety Code(s): F41.9 - Anxiety disorder, unspecified Status: Acute (7) CVA, old, cognitive deficits Code(s): I69.319 - Unspecified symptoms and signs involving cognitive functions following cerebral infarction Status: Chronic (8) Diarrhea Code(s): R19.7 - Diarrhea, unspecified Status: Chronic (9) CKD (chronic kidney disease) Code(s): N18.9 - Chronic kidney disease, unspecified Status: Chronic (10) Nutrition, metabolism, and development symptoms Code(s): R63.8 - Other symptoms and signs concerning food and fluid intake Status: Acute <Annia Cortez - 07/14/18 15:19> (1) SIRS (systemic inflammatory response syndrome) Code(s): R65.10 - Systemic inflammatory response syndrome (SIRS) of non- infectious origin without acute organ dysfunction Status: Acute Plan: Pt met SIRS criteria overnight due to tachycardia and leukocytosis (likely due to steroids). A source of infection has not yet been pinpointed, but may be due to new parenchymal changes on CXR (however, these are minimal). If this is the case, then patient met severe sepsis criteria due to her hypotension and elevated lactic acid of 3.0 (could be due to respiratory status at the time of being drawn). Due to all these factors, will likely not change our plan. CXR on 07/13: New minimal parenchymal changes left base. See below for plan, (2) COPD (chronic obstructive pulmonary disease) Code(s): J44.9 - Chronic obstructive pulmonary disease, unspecified Status: Acute Plan: Advanced COPD, history of multiple hospitalizations. Hypotensive with worsening shortness of breath overnight. ABG: PH 7.40, PCO2: 36, O2 saturation: 89 Follow-up respiratory panel Follow-up blood cultures, sputum cultures Status post DEXA 80 mg IV push in ED Prednisone 60mg po given on 07/12, continue 40mg po qD Duo nebs every 8 hours scheduled alternate with Albuterol nebs 8 hours Azithromycin 500 mg IV every 24 hours Protonix 40 mg IV push for steroid use Consider a walk test prior to discharge. O2 as needed to maintain O2 sats over 92% Monitor pulse ox Vital signs every 4 hours Follow-up with COPD educator (3) Headache Code(s): R51 - Headache Status: Acute Plan: Patient has history of headaches, with nausea, photophobia, phonophobia (likely migraines) since after having her CVAs (as stated by her PCP), and has used meclizine antihistamine in the past. Headaches still ongoing today. Toradol not helping. -Will restart meclizine 25 mg daily when patient tolerates p.o. -Ofirmev IV scheduled -Ideally we avoid opiate analgesics -Consider neurology consult Follow-up workup for above etiologies (4) Epigastric pain Code(s): R10.13 - Epigastric pain Status: Acute Plan: Epigastric pain may be due to cardiac origin versus esophagitis versus PE Follow-up ACS workup: Troponin negative x3 EKG negative 3 Hemoglobin stable Protonix 40 mg IV daily f/u FOBT (5) UTI (urinary tract infection) Code(s): N39.0 - Urinary tract infection, site not specified Status: Acute Plan: Patient asymptomatic, UA: Negative nitrates, moderate leuk esterase, rare bacteria Follow-up urine culture, shows mixed cayla, probable contaminants Follow-up blood cultures Started on Rocephin 1g overnight (6) Anxiety Code(s): F41.9 - Anxiety disorder, unspecified Status: Acute Plan: Anxiety related to multiple medical problems and history Patient lethargic on exam following the regimen below Continue to monitor and reevaluate anxiety medications if needed In ED patient received: Morphine 4 mg IV push Compazine 5 mg IV push Benadryl 25 mg IV push Continue home meds paxil 40mg daily, wellbutrin, and memantine TID (7) CVA, old, cognitive deficits Code(s): I69.319 - Unspecified symptoms and signs involving cognitive functions following cerebral infarction Status: Chronic Plan: History of multiple strokes Presents with headache and altered mental status Follow-up neurochecks every 4 Carotid ultrasound: No significant plaques. MRI/MRA: Old infarcts only. No acute infarct CT head: Old bilateral occipital lobe infarcts, greater on right, small old infarct in posterior right cell of pallor hemisphere. No hemorrhage. Continue home meds: aspirin and Plavix Thankfully her MRI did not show any new strokes. (8) Diarrhea Code(s): R19.7 - Diarrhea, unspecified Status: Chronic Plan: She states she has diarrhea not infrequently. The diarrhea according to her is not new and is recurrent without an obvious infectious source. She will be able to have this followed up as an outpatient with her new primary care doctor and hopefully the records will be able to be obtained from [place]. (9) CKD (chronic kidney disease) Code(s): N18.9 - Chronic kidney disease, unspecified Status: Chronic Plan: Unknown baseline creatinine, kidney problems per Creatinine 1.04 on admission, now 0.94. Follow-up creatinine, caution with nephrotoxic meds (10) Nutrition, metabolism, and development symptoms Code(s): R63.8 - Other symptoms and signs concerning food and fluid intake Status: Acute Plan: Fluids: Bedside speech eval to clear for p.o., then regular diet Electrolytes: Follow-up BMP and replete as needed Nutrition: Regular diet DVT prophylaxis: Lovenox 30 subcu daily <Cheri Cline - 07/13/18 16:28> - Assessment and Plan 57-year-old female, history of severe COPD, headaches, multiple strokes, kidney disease, presents with COPD exacerbation, headache, and epigastric pain. <Cheri Cline - 07/13/18 16:16> Discussed Condition With: FIGUEROAW Dr. Flores, Dr. Cortez <Cheri Cline - 07/13/18 16:47> - Attending Attestation The exam, history, and the medical decision-making described in the above note were completed with the assistance of the resident physician. I reviewed and agree with the findings presented. I attest that I had a [id number] encounter with the patient on the same day, and personally performed and documented my assessment and findings in the medical record. Unsure exactly why her white count went up so high and she became hypotensive. On admission she really only complains mainly about the headache. Her pulmonary problems possibly could contribute to a septic picture however if she really had sepsis she had no sort of fever or other signs or symptoms of that. She did give a history or her who is better historian gave a history that when she was in the hospital before in [place] at times her blood pressures will go low she would go into acute kidney injury as well as her COPD. Those records have been sent for her and has she especially as it is a confusing historian. <Annia Cortez - 07/14/18 15:19> <Cheri Cline G - Last Filed: 07/13/18 16:28> (2) COPD (chronic obstructive pulmonary disease) Qualifiers: COPD type: COPD with acute exacerbation Qualified Code(s): J44.1 - Chronic obstructive pulmonary disease with (acute) exacerbation (3) Headache Qualifiers: Headache type: other headache syndrome Qualified Code(s): G44.89 - Other headache syndrome (5) UTI (urinary tract infection) Qualifiers: Urinary tract infection type: acute cystitis Hematuria presence: without hematuria Qualified Code(s): N30.00 - Acute cystitis without hematuria (8) Diarrhea Qualifiers: Diarrhea type: unspecified type Qualified Code(s): R19.7 - Diarrhea, unspecified <Annia Cortez - Last Filed: 07/14/18 15:19> (2) COPD (chronic obstructive pulmonary disease) Qualifiers: COPD type: COPD with acute exacerbation Qualified Code(s): J44.1 - Chronic obstructive pulmonary disease with (acute) exacerbation (3) Headache Qualifiers: Headache type: other headache syndrome Qualified Code(s): G44.89 - Other headache syndrome (5) UTI (urinary tract infection) Qualifiers: Urinary tract infection type: acute cystitis Hematuria presence: without hematuria Qualified Code(s): N30.00 - Acute cystitis without hematuria (8) Diarrhea Qualifiers: Diarrhea type: unspecified type Qualified Code(s): R19.7 - Diarrhea, unspecified <Cheri Cline - Last Filed: 07/13/18 16:28> (2) COPD (chronic obstructive pulmonary disease) Qualifiers: COPD type: COPD with acute exacerbation Qualified Code(s): J44.1 - Chronic obstructive pulmonary disease with (acute) exacerbation (3) Headache Qualifiers: Headache type: other headache syndrome Qualified Code(s): G44.89 - Other headache syndrome (5) UTI (urinary tract infection) Qualifiers: Urinary tract infection type: acute cystitis Hematuria presence: without hematuria Qualified Code(s): N30.00 - Acute cystitis without hematuria (8) Diarrhea Qualifiers: Diarrhea type: unspecified type Qualified Code(s): R19.7 - Diarrhea, unspecified <Annia Cortez - Last Filed: 07/14/18 15:19> (2) COPD (chronic obstructive pulmonary disease) Qualifiers: COPD type: COPD with acute exacerbation Qualified Code(s): J44.1 - Chronic obstructive pulmonary disease with (acute) exacerbation (3) Headache Qualifiers: Headache type: other headache syndrome Qualified Code(s): G44.89 - Other headache syndrome (5) UTI (urinary tract infection) Qualifiers: Urinary tract infection type: acute cystitis Hematuria presence: without hematuria Qualified Code(s): N30.00 - Acute cystitis without hematuria (8) Diarrhea Qualifiers: Diarrhea type: unspecified type Qualified Code(s): R19.7 - Diarrhea, unspecified
--- NOTE | 2018-07-13 11:18 | XR ---
EXAM DATE: 07/13/2018 11:14 AM EDT AGE/SEX: 57 years / Female INDICATIONS: Cough and short of breath. CLINICAL DATA: This is the patient's initial encounter. Patient reports that signs and symptoms have been present for 1 day and indicates a pain score of 0/10. MEDICAL/SURGICAL HISTORY: Chronic obstructive pulmonary disease. Hypertension. None. COMPARISON: [facility] – [place] 1V SINGLE AP, 07/11/2018. . FINDINGS: Linear atelectatic changes left midlung. Minimal new parenchymal changes left lower lobe. Right lung clear. The heart and pulmonary vascularity are normal. The portion of the bony skeleton visualized is unremarkable. CONCLUSION: New minimal parenchymal changes left base. Electronically signed by: Hector Carrillo MD 07/13/2018 11:16 AM EDT
[2018-07-13 11:43] LABS: Baso % (Auto) 0.1 % (0.0-2.0); Hematocrit 33.4 % (35.0-46.0); Hemoglobin 11.2 gm/dL (11.6-15.3); Lymph # (Auto) 1.4 th/mm3 (1.0-4.8); Lymph % (Auto) 7.4 % (9.0-44.0); Mean Corpuscular HGB Conc 33.6 % (32.0-36.0); Mean Corpuscular Hemoglobin 29.1 pg (27.0-34.0); Mean Corpuscular Volume 86.8 fL (80.0-100.0); Mean Platelet Volume 8.7 fL (7.0-11.0); Mono # (Auto) 0.3 th/mm3 (0.0-0.9); Mono % (Auto) 1.8 % (0.0-8.0); Neut # (Auto) 16.8 th/mm3 (1.8-7.7); Neut % (Auto) 90.7 % (16.0-70.0); Platelet Count 286 th/mm3 (150-450); Red Blood Count 3.85 mil/mm3 (4.00-5.30); White Blood Count 18.6 th/mm3 (4.0-11.0)
--- NOTE | 2018-07-13 16:40 | ECG ---
Date Performed: 07/12/2018 Time Performed: 14:47:06 PTAGE: 57 years EKG: Sinus rhythm NORMAL ECG Since the PREVIOUS TRACING , no significant change noted PREVIOUS TRACIN07/12/2018 00.17 DOCTOR: Chen Gr Interpretating Date/Time 07/13/2018 16:38:35
[2018-07-13] MEDS ORDERED: Butalbital/APAP/Caff 50/325/40 MG Tablet PO PRN (20:21)
[2018-07-13] MEDS ORDERED: Zolpidem Tartrate 5 MG Tablet PO PRN (20:22)
[2018-07-13] MEDS: Azithromycin Inj 500 MG in Sodium Chlor 0.9% Inj 250 ML IV.SIG SCH (20:23)
[2018-07-14] MEDS: Ketorolac Inj 30 MG/ML (IVP) Vial IV.PUSH SCH ×2 (03:21→08:26)
[2018-07-14 07:41] LABS: Baso % (Auto) 0.2 % (0.0-2.0); Eos # (Auto) 0.1 th/mm3 (0.0-0.4); Eos % (Auto) 0.8 % (0.0-4.0); Hemoglobin 10.7 gm/dL (11.6-15.3); Lymph # (Auto) 4.3 th/mm3 (1.0-4.8); Lymph % (Auto) 27.4 % (9.0-44.0); Mean Corpuscular HGB Conc 32.3 % (32.0-36.0); Mean Corpuscular Hemoglobin 28.7 pg (27.0-34.0); Mean Corpuscular Volume 88.9 fL (80.0-100.0); Mean Platelet Volume 8.6 fL (7.0-11.0); Mono # (Auto) 0.8 th/mm3 (0.0-0.9); Neut # (Auto) 10.5 th/mm3 (1.8-7.7); Neut % (Auto) 66.6 % (16.0-70.0); Platelet Count 263 th/mm3 (150-450); Red Blood Count 3.72 mil/mm3 (4.00-5.30); Red Cell Distribution Width 13.9 % (11.6-17.2); White Blood Count 15.8 th/mm3 (4.0-11.0)
[2018-07-14 08:14] LABS: Alanine Aminotransferase 27 U/L (10-53); Albumin 2.9 g/dL (3.4-5.0); Alkaline Phosphatase 87 U/L (45-117); Anion Gap 6 meq/L (5-15); Aspartate Aminotransferase 18 U/L (15-37); Blood Urea Nitrogen 18 mg/dL (7-18); Calcium 8.4 mg/dL (8.5-10.1); Carbon Dioxide 27.2 meq/L (21.0-32.0); Chloride 113 meq/L (98-107); Glomerular Filtration Rate 62 mL/min (>89); Glucose,Random 69 mg/dL (74-106); Potassium 3.7 meq/L (3.5-5.1); Sodium 146 meq/L (136-145); Total Protein 5.8 g/dL (6.4-8.2)
[2018-07-14] MEDS: predniSONE 20 MG Tablet PO SCH (08:24)
[2018-07-14] MEDS: buPROPion 100 MG Tablet PO SCH (08:29)
[2018-07-14] MEDS ORDERED: Morphine Sulfate Inj 2 MG/ML Vial IV.PUSH PRN (09:48)
[2018-07-14] MEDS ORDERED: guaiFENesin 600 MG ER Tablet PO SCH (10:00)
[2018-07-14 12:42] VITALS: BP 127/61; TEMP 98.6; O2SAT 96
--- NOTE | 2018-07-14 14:34 | P.PNFP ---
Subjective Interval history: Patient seen and examined this morning. She states that she is in a lot of pain from a headache, 5/10. She does not feel like the medications we are giving her are helping. She also feels like the nebulizer treatments are not getting into her lungs. She wants to leave the hospital. No fevers or chills, no chest pain, no abdominal pain. <Cheri Cline - 07/14/18 14:34> Results - Labs Result diagrams: 07/14/18 06:25 07/14/18 06:25 <Annia Cortez - 07/15/18 16:29> Abnormal lab results 07/14/18 07/14/18 Range/Units 06:25 06:25 WBC 15.8 H (4.0-11.0) th/mm3 RBC 3.72 L (4.00-5.30) mil/mm3 Hgb 10.7 L (11.6-15.3) gm/dL Hct 33.0 L (35.0-46.0) % Neut # (Auto) 10.5 H (1.8-7.7) th/mm3 Sodium 146 H (136-145) meq/L Chloride 113 H (98-107) meq/L Estimated GFR 62 L (>89) mL/min Random Glucose 69 L (74-106) mg/dL Calcium 8.4 L (8.5-10.1) mg/dL Total Bilirubin 0.1 L (0.2-1.0) mg/dL Total Protein 5.8 L D (6.4-8.2) g/dL Albumin 2.9 L D (3.4-5.0) g/dL Short CBC 07/14/18 Range/Units 06:25 WBC 15.8 H (4.0-11.0) th/mm3 Hgb 10.7 L (11.6-15.3) gm/dL Hct 33.0 L (35.0-46.0) % Plt Count 263 (150-450) th/mm3 BMP 07/14/18 06:25 Sodium 146 H Potassium 3.7 D Chloride 113 H Carbon Dioxide 27.2 BUN 18 Creatinine 0.93 Calcium 8.4 L Liver Function 07/14/18 Range/Units 06:25 Total Bilirubin 0.1 L (0.2-1.0) mg/dL AST 18 (15-37) U/L ALT 27 (10-53) U/L Alkaline Phosphatase 87 (45-117) U/L Albumin 2.9 L D (3.4-5.0) g/dL <Cheri Cline G - 07/14/18 14:34> Physical Exam Vital signs: Vital Signs 07/13/18 15:19 07/13/18 16:22 07/13/18 19:30 Temperature 97.7 F Pulse Rate 95 H 92 H 88 Respiratory Rate 16 16 18 Blood Pressure 115/59 L Pulse Oximetry 96 98 07/13/18 20:00 07/13/18 23:34 07/14/18 00:00 Temperature 97.6 F Pulse Rate 90 78 76 Respiratory Rate 18 18 17 Blood Pressure 127/63 121/60 Pulse Oximetry 99 97 07/14/18 02:57 07/14/18 04:00 07/14/18 06:58 Temperature Pulse Rate 79 78 77 Respiratory Rate 18 Blood Pressure Pulse Oximetry 07/14/18 07:16 07/14/18 08:00 07/14/18 11:18 Temperature 98.1 F Pulse Rate 78 95 H 94 H Respiratory Rate 17 18 16 Blood Pressure 134/75 Pulse Oximetry 97 94 L 07/14/18 12:00 Temperature 98.6 F Pulse Rate 96 H Respiratory Rate 16 Blood Pressure 127/61 Pulse Oximetry 96 Intake & Output 07/13/18 07/14/18 07/14/18 18:59 06:59 18:59 Intake Total 580 / 580 350 / 350 Balance 580 / 580 350 / 350 Weight 73.7 kg Intake: IV 100 / 100 350 / 350 Ofirmev Inj 1,000 mg In 100 ml 100 / 100 @ 400 mls/hr IV.SIG Q6H PRN Rx# :[id number] Azithromycin Inj 500 MG In NS 250 / 250 Inj 250 ML @ 250 mls/hr IV.SIG Q24H OSBALDO Rx#:[id number] Rocephin Inj 1,000 MG In NS Inj 100 / 100 100 ML @ 200 mls/hr IV.SIG Q24H OSBALDO Rx#:[id number] Oral 480 / 480 <Cheri Cline G - 07/14/18 14:34> Narrative: GENERAL: white female sitting up in bed, in no acute distress SKIN: Warm and dry. HEAD: Atraumatic. Normocephalic. EYES: Pupils equal and round. No scleral icterus. No injection or drainage. ENT: No nasal bleeding or discharge. Mucous membranes pink and moist. NECK: Trachea midline. No JVD. CARDIOVASCULAR: Regular rate and rhythm. RESPIRATORY: Diffuse end expiratory wheezing much improved from yesterday. GASTROINTESTINAL: Abdomen soft, non-tender, nondistended. MUSCULOSKELETAL: Extremities without clubbing, cyanosis, or edema. No obvious deformities. NEUROLOGICAL: Awake and alert. No obvious cranial nerve deficits. Motor grossly within normal limits. Normal speech. <Cheri Cline - 07/14/18 14:34> Assessment and Plan - Assessment (1) SIRS (systemic inflammatory response syndrome) Code(s): R65.10 - Systemic inflammatory response syndrome (SIRS) of non- infectious origin without acute organ dysfunction Status: Acute Plan: Pt met SIRS criteria overnight due to tachycardia and leukocytosis (likely due to steroids). A source of infection has not yet been pinpointed, but may be due to new parenchymal changes on CXR (however, these are minimal). If this is the case, then patient met severe sepsis criteria due to her hypotension and elevated lactic acid of 3.0 (could be due to respiratory status at the time of being drawn). Due to all these factors, will likely not change our plan. CXR on 07/13: New minimal parenchymal changes left base. See below for plan, (2) COPD (chronic obstructive pulmonary disease) Code(s): J44.9 - Chronic obstructive pulmonary disease, unspecified Status: Acute Plan: Advanced COPD, history of multiple hospitalizations. Lungs are much improved on exam today. ABG: PH 7.40, PCO2: 36, O2 saturation: 89 blood cultures NGTD Status post DEXA 80 mg IV push in ED Prednisone 60mg po given on 07/12, continue 40mg po qD Duo nebs every 8 hours scheduled alternate with Albuterol nebs 8 hours Azithromycin 500 mg IV every 24 hours Protonix 40 mg IV push for steroid use Consider a walk test prior to discharge. O2 as needed to maintain O2 sats over 92% Monitor pulse ox Vital signs every 4 hours Follow-up with COPD educator (3) Headache Code(s): R51 - Headache Status: Acute Plan: Patient has history of headaches, with nausea, photophobia, phonophobia (likely migraines) since after having her CVAs (as stated by her PCP), and has used meclizine antihistamine in the past. Headaches still ongoing today. Toradol not helping. -Ofirmev IV scheduled -Meclizine 25 mg TID PRN (was prescribed by previous PCP) -Morphine 2mg IV q3h PRN -Neurology consulted, appreciate recs (4) Epigastric pain Code(s): R10.13 - Epigastric pain Status: Acute Plan: Epigastric pain may be due to cardiac origin versus esophagitis versus PE Follow-up ACS workup: Troponin negative x3 EKG negative 3 Hemoglobin stable Protonix 40 mg IV daily f/u FOBT (5) UTI (urinary tract infection) Code(s): N39.0 - Urinary tract infection, site not specified Status: Acute Plan: Patient asymptomatic, UA: Negative nitrates, moderate leuk esterase, rare bacteria Follow-up urine culture, shows mixed cayla, probable contaminants Follow-up blood cultures Started on Rocephin 1g overnight (6) Anxiety Code(s): F41.9 - Anxiety disorder, unspecified Status: Acute Plan: Anxiety related to multiple medical problems and history Patient lethargic on exam following the regimen below Continue to monitor and reevaluate anxiety medications if needed In ED patient received: Morphine 4 mg IV push Compazine 5 mg IV push Benadryl 25 mg IV push Continue home meds paxil 40mg daily, wellbutrin, and memantine TID (7) CVA, old, cognitive deficits Code(s): I69.319 - Unspecified symptoms and signs involving cognitive functions following cerebral infarction Status: Chronic Plan: History of multiple strokes Presents with headache and altered mental status Follow-up neurochecks every 4 Carotid ultrasound: No significant plaques. MRI/MRA: Old infarcts only. No acute infarct CT head: Old bilateral occipital lobe infarcts, greater on right, small old infarct in posterior right cell of pallor hemisphere. No hemorrhage. Continue home meds: aspirin and Plavix Thankfully her MRI did not show any new strokes. (8) Diarrhea Code(s): R19.7 - Diarrhea, unspecified Status: Chronic Plan: She states she has diarrhea not infrequently. The diarrhea according to her is not new and is recurrent without an obvious infectious source. She will be able to have this followed up as an outpatient with her new primary care doctor and hopefully the records will be able to be obtained from [place]. (9) CKD (chronic kidney disease) Code(s): N18.9 - Chronic kidney disease, unspecified Status: Chronic Plan: Unknown baseline creatinine, kidney problems per Creatinine 1.04 on admission, now 0.94. Follow-up creatinine, caution with nephrotoxic meds (10) Nutrition, metabolism, and development symptoms Code(s): R63.8 - Other symptoms and signs concerning food and fluid intake Status: Acute Plan: Fluids: Bedside speech eval to clear for p.o., then regular diet Electrolytes: Follow-up BMP and replete as needed Nutrition: Regular diet DVT prophylaxis: Lovenox 30 subcu daily <Cheri Cline - 07/14/18 15:17> - Assessment and Plan 57-year-old female, history of severe COPD, headaches, multiple strokes, kidney disease, presents with COPD exacerbation, headache, and epigastric pain. <Cheri Cline - 07/14/18 14:34> - Attending Attestation The exam, history, and the medical decision-making described in the above note were completed with the assistance of the resident physician. I reviewed and agree with the findings presented. I attest that I had a [id number] encounter with the patient on the same day, and personally performed and documented my assessment and findings in the medical record. had long discussion with pt and as well as her nurse. Ms Lobo felt she was being ignored and not getting any pain meds. She is a bit confused and a poor historian about her meds and what works for her in the past. she did not remember getting her meds that were charted as being taken a hour before, nor did she remember taking her meds the night before though she did say she slept well. she stated "I'm leaving the hospital today no matter what." despite her complaining about her headache pain, she seemed 80 to 90% better than admission. she did have the capacity to make decisions <Annia Cortez M - 07/15/18 16:29> <Cheri Cline - Last Filed: 07/14/18 15:17> (2) COPD (chronic obstructive pulmonary disease) Qualifiers: COPD type: COPD with acute exacerbation Qualified Code(s): J44.1 - Chronic obstructive pulmonary disease with (acute) exacerbation (3) Headache Qualifiers: Headache type: other headache syndrome Qualified Code(s): G44.89 - Other headache syndrome (5) UTI (urinary tract infection) Qualifiers: Urinary tract infection type: acute cystitis Hematuria presence: without hematuria Qualified Code(s): N30.00 - Acute cystitis without hematuria (8) Diarrhea Qualifiers: Diarrhea type: unspecified type Qualified Code(s): R19.7 - Diarrhea, unspecified <Cheri Cline - Last Filed: 07/14/18 15:17> (2) COPD (chronic obstructive pulmonary disease) Qualifiers: COPD type: COPD with acute exacerbation Qualified Code(s): J44.1 - Chronic obstructive pulmonary disease with (acute) exacerbation (3) Headache Qualifiers: Headache type: other headache syndrome Qualified Code(s): G44.89 - Other headache syndrome (5) UTI (urinary tract infection) Qualifiers: Urinary tract infection type: acute cystitis Hematuria presence: without hematuria Qualified Code(s): N30.00 - Acute cystitis without hematuria (8) Diarrhea Qualifiers: Diarrhea type: unspecified type Qualified Code(s): R19.7 - Diarrhea, unspecified
[2018-07-14 15:01] VITALS: PULSE 104; RESP 18
--- NOTE | 2018-07-14 15:20 | P.AMA ---
AMA Note - AMA Note AMA Statement: Patient Tahmina Lobo has decided to leave the hospital against medical advice. This patient has the capacity to refuse care and understands the risks of leaving, including permanent disability and/or , and has had an opportunity to ask questions about her condition. The patient has been informed that she may return for care at any time, and follow up has been advised. The doctor-patient relationship has been severed, therefore we will not accept this patient back on our service. - AMA Note Discharge Disposition: Left Against Medical Advice Patient Condition on Discharge: Stable
--- NOTE | 2018-07-23 09:30 | P.DS ---
Date of admission: 07/11/18 16:16 Primary care physician: No Primary Care Physician Brief History from admission: 57-year-old female, history of severe COPD, headaches, multiple strokes, kidney disease, presents with COPD exacerbation, headache, and epigastric pain. All of her symptoms started at 11:45AM this morning in the store. She got dizzy and nauseas, and drove her to the ED. During time of exam, pt is s/p morphine dosing and is somewhat confused and having difficulty answering questions. The stated yesterday she stopped the cart in the middle of the store and said she was dizzy and nauseas and wanted to go sit in the car. In the car she was slumped against the door and "looked really sick". She was complaining of headache over the day; it started in the morning when she woke up and progressively got worse and worse over the day. She did not appear to have any difficulty breathing. She was holding her chest and saying she had "sharp pains in the middle" of her chest. She seemed to be somewhat altered/ confused, however this does happen to her occasionally since her strokes. After arriving to the ED, her CP was relieved with nitro, nausea was relieved, but her headache remained. She stated her headaches were often one-sided throbbing pounding relieved by rest made worse by light or sound. When questioned as to her frequency she said they happen as often as once a week. She said the best treatment was to sleep for about a day and a half and then the headache would usually go away. When questioned about medication to prevent migraine she stated that she was taking meclizine to help prevent dementia. Some of her history would need to be verified by old records obviously. DS: Summary Hospital Course: Patient initially admitted on 07/11 for headaches, dizziness, and nausea. She was also having chest pains. ACS was ruled out. Patient also developed shortness of breath and was diagnosed as COPD exacerbation. She received DuoNeb and albuterol nebulizers alternating along with prednisone. She was also started on azithromycin 500 mg IV every 24 hours. Her headache was treated with Ofirmev IV scheduled, meclizine, and morphine. This was not helping with the patient's pain, therefore we consulted neurology. However, patient decided to leave A before being seen by neurology. - Time Spent with Patient Total time spent providing and/or coordinating discharge services: Greater than 30 minutes - Quality: VTE Deep Vein Thrombosis/Pulmonary Embolism Present on Admission: No Results Procedures completed during hospitalization: None - Impressions ITS Impressions Carotid Doppler Study 07/11/18 00:00 CONCLUSION: 1. Right Internal Carotid Artery: No significant plaque or narrowing. 2. Left Internal Carotid Artery: No significant plaque or narrowing. Head MRI 07/11/18 00:00 CONCLUSION: 1. 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 2. No acute abnormality. Head MRA 07/11/18 00:00 CONCLUSION: Within normal limits. No acute occlusive disease. Head CT 07/11/18 12:07 CONCLUSION: 1. 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 2. Small old infarct in the posterior right cerebellar hemisphere. 3. No focal or acute intracranial hemorrhage. . Chest X-Ray 07/13/18 00:00 CONCLUSION: New minimal parenchymal changes left base. Discharge Plan - Discharge Disposition Patient Disposition: Left Against Medical Advice - Discharge Condition Condition: Stable - Discharge Order Discharge Orders: AMA Discharge (Routine); Ordered 07/14/18 Ordered By: Cheri Cline - Physicians Team Primary Care Provider: Primary Care Physici,No Attending Provider: Annia Cortez Other Providers: Altaf Lopez MD
== END 2018-07-14 15:22 | disposition left against medical advice (07) ==
LOC: NEPE 11:44 → NEPHCDU 11:44 → NEDA 11:44 → NEPHCDU 20:26
PROVIDERS: ADMIT Family Medicine; ATTEND Family Medicine
DX: F41.9 Anxiety disorder, unspecified; H47.619 Cortical blindness, unspecified side of brain; R19.7 Diarrhea, unspecified; Z79.899 Other long term (current) drug therapy; R09.89 Other specified symptoms and signs involving the circulatory and respiratory systems; F17.210 Nicotine dependence, cigarettes, uncomplicated; I12.9 Hypertensive chronic kidney disease with stage 1 through stage 4 chronic kidney disease, or unspecified chronic kidney disease; E78.00 Pure hypercholesterolemia, unspecified; R10.13 Epigastric pain; N18.9 Chronic kidney disease, unspecified; I69.319 Unspecified symptoms and signs involving cognitive functions following cerebral infarction; G43.909 Migraine, unspecified, not intractable, without status migrainosus; R42 Dizziness and giddiness; J44.1 Chronic obstructive pulmonary disease with (acute) exacerbation; R06.02 Shortness of breath; N30.00 Acute cystitis without hematuria